=== PATIENT | male | born 1945 | race Caucasian/White ===

== ENCOUNTER → 2017-10-26 16:08 | Outpatient (CLI) | payer MEDICARE, OTHER, SELFPAY ==
--- NOTE | 2017-10-26 16:12 | RAD_ITS ---
STUDY: X-RAY CHEST REASON FOR EXAM: Male, 72 years old. SOB / SOA TECHNIQUE: Frontal and lateral views of the chest. COMPARISON: None. FINDINGS: Chronic appearing increased interstitial lung markings. There is no demonstrated pleural abnormality. Enlarged heart size. Normal mediastinum and randy. Normal visualized pulmonary arteries. There is atherosclerotic calcification of the aortic arch with tortuosity. There are diffuse degenerative changes of the visualized thoracic spine. There is degenerative osteoarthritis of the bilateral shoulders. There is no demonstrated abnormality of the visualized soft tissue structures of the upper abdomen. RAD/Chest PA and Lateral IMPRESSION: There are no acute findings. Electronically Signed: Juanito Fox MD at 18:06 EST , Service support ,
[2017-10-26 17:54] LABS: BNP,B-Type NATRIURETIC PEPTIDE 681.6 pg/mL (0-100)
[2017-10-26 18:01] LABS: Anion Gap 7 (5-15); BUN 27 mg/dL (7-18); BUN/Creat Ratio 24.5 RATIO (10-20); Calcium,Total 8.8 mg/dL (8.5-10.1); Chloride 107 mmol/L (98-107); EST Glomerular Filtration Rate 70 mL/min (>60); Est Glom Filt Rate - Afr Amer 84 mL/min (>60); Glucose 84 mg/dL (74-106); Potassium 4.4 mmol/L (3.5-5.1); Sodium Level 141 mmol/L (136-145)
== END ==
PROVIDERS: Family Provider Preventive Medicine Occupational Medicine; PCP Preventive Medicine Occupational Medicine; Visit Provider Nurse Practitioner Acute Care
DX: R06.02 Shortness of breath (principal)
CPT/HCPCS: 36415; 71046; 80048; 83880

== ENCOUNTER → 2019-08-31 14:51 | Outpatient (CLI) | payer MEDICARE, OTHER, SELFPAY ==
[2019-08-16 14:04] VITALS: BMI 30.5
--- NOTE | 2019-08-31 14:52 | ECHOD_ITS ---
Reason For Study: Dyspnea/SOB Procedure This was a 2D Doppler, Color Flow transthoracic echocardiogram. Exam performed in department. Left Ventricle Normal LV size. Severe concentric left ventricular hypertrophy. Mild segmental systolic dysfunction (see wall motion). The estimated ejection fraction is 45 %. Posterior-Basal: Hypokinetic. Infero- Basal: Akinetic. Mid-Posterior: Hypokinetic. Mid-Inferior: Akinetic. Inferior [place] : Hypokinetic. Right Ventricle Normal RV size. Normal systolic function. Atria The left atrium is moderately enlarged. The right atrium is moderately enlarged. No doppler evidence for ASD. Mitral Valve There is no mitral annular calcification. Normal mitral valve. Moderate (2+) eccentric mitral valve insufficiency. Tricuspid Valve Normal tricuspid valve. Mild to moderate (1-2+) tricuspid valve insufficiency. Right ventricular systolic pressure estimated to be 30 mmHg. Aortic Valve Trisinus/trileaflet aortic valve. Normal aortic valve. Pulmonic Valve The pulmonic valve is not well visualized. Great Vessels The aortic root is not well visualized. Pericardium/Pleural No pericardial effusion. MMode/2D Measurements & Calculations LVIDd: 5.3 cm IVSd: 2.1 cm LA dimension: 5.9 cm LVIDs: 4.4 cm LVPWd: 1.8 cm RVDd: 4.3 cm FS: 15.8 % LAV(MOD-bp): 112.6 ml LA A4 area: 30.7 cm2 RA A4 area: 30.8 cm2 LAV(MOD-bp) Indexed: 54.4 ml/m2 LAV(MOD-sp2): 104.5 ml LAV(MOD-sp4): 113.9 ml Time Measurements MV dec time: 0.14 sec Doppler Measurements & Calculations MV E max joon: 99.8 cm/sec Med Peak E' Joon: 4.4 cm/sec MV V2 max: 96.4 cm/sec MV A max joon: 39.3 cm/sec E/E' med: 22.7 MV max P.7 mmHg MV E/A: 2.5 MV V2 mean: 56.1 cm/sec MV mean P.5 mmHg MV V2 VTI: 28.0 cm MV P1/2t max joon: 97.7 cm/sec Ao V2 max: 134.2 cm/sec AI max joon: 427.7 cm/sec MV P1/2t: 113.2 msec Ao max P.2 mmHg AI max P.3 mmHg MV dec slope: 252.9 cm/sec2 AI dec slope: 226.4 cm/sec2 MVA(P1/2t): 1.9 cm2 AI P1/2t: 553.4 msec LV V1 max: 95.1 cm/sec MR max joon: 440.8 cm/sec PA V2 max: 79.0 cm/sec LV V1 max P.6 mmHg MR max P.7 mmHg MR mean joon: 335.6 cm/sec MR mean P.3 mmHg MR VTI: 143.4 cm TR max joon: 260.3 cm/sec TR max P.1 mmHg Interpretation Summary Mild segmental systolic dysfunction (see wall motion). The estimated ejection fraction is 45 %. Severe concentric left ventricular hypertrophy. The left atrium is moderately enlarged. The right atrium is moderately enlarged. Moderate (2+) eccentric mitral valve insufficiency. Mild to moderate (1-2+) tricuspid valve insufficiency. Right ventricular systolic pressure estimated to be 30 mmHg. Transmitral diastolic flow velocities suggest diastolic dysfunction (pseudonormal pattern). Ordering Physician: Thomas Heath Referring Physician: Thomas Heath Performed By: Alcon Mckeon RCS
== END ==
PROVIDERS: Family Provider Preventive Medicine Occupational Medicine; PCP Preventive Medicine Occupational Medicine; Referring Provider Nurse Practitioner Family; Visit Provider Nurse Practitioner Family
DX: R06.02 Shortness of breath (principal); R06.09 Other forms of dyspnea; I48.0 Paroxysmal atrial fibrillation; I42.9 Cardiomyopathy, unspecified
CPT/HCPCS: 93306

== ENCOUNTER → 2019-09-19 05:51 | Outpatient (CLI) | payer MEDICARE, OTHER, SELFPAY ==
[2019-08-16 14:04] VITALS: BMI 30.5
--- NOTE | 2019-09-19 10:11 | STRESSREP ---
Stress Test Report Date: 09-19-2019 Procedure: Pharmacologic stress nuclear imaging study Indications: Chest pain; pertinence of breath/dyspnea; atrial dysrhythmia; PVCs; cardiomyopathy Consent: Per the patient Procedure: The patient underwent pharmacologic (Regadenoson) evaluation with a peak heart rate of 77 beats per minute (53 %predicted maximal heart rate) and a peak blood pressure of 126/78 mmHg. The baseline ECG demonstrated sinus rhythm; right IVCD. The peak pharmacologic ECG demonstrated no obvious ECG changes. There were occasional PVCs pretest, during infusion, and recovery. [There was no complaint of chest discomfort during pharmacologic infusion or recovery]. The examination was discontinued secondary to completion of protocol. Impression: 1. Pharmacologic (Regadenoson) evaluation 2. Peak pharmacologic ECG with continued right IVCD pattern. 3. There were occasional PVCs pretest, during infusion, and recovery. 4. Nuclear images pending Myocardial perfusion imaging study: Technique: The patient was injected with 14.5 millicuries of technetium 99m Cardiolite and subsequently rest SPECT Cardiolite nuclear imaging was obtained in the horizontal long, vertical long, and short axis views. The patient underwent pharmacologic (Regadenoson) evaluation with a peak heart rate of 77 beats per minute (53 % percent predicted maximal heart rate) and a peak blood pressure of 126/78 mmHg. The patient was injected with 45.0 millicuries of technetium 99m Cardiolite and subsequently stress SPECT Cardiolite nuclear imaging was obtained in the horizontal long, vertical long, and short axis views. A gated Cardiolite study at peak stress was not obtained. Interpretation: Rest and stress SPECT Cardiolite nuclear imaging status post realignment, normalization, and attenuation correction demonstrate a small area of subtle diminished tracer uptake near the apical segments which appear to be somewhat more prominent at rest as opposed to stress. A gated Cardiolite study at peak stress was not obtained. Impression: 1. Rest and stress SPECT Cardiolite nuclear imaging demonstrate myocardial perfusion changes appearing compatible with the effects of shifting soft tissue attenuation/artifact being somewhat more prominent at rest as opposed to stress and/or the effects of physiologic apical thinning with no myocardial perfusion changes consider diagnostic for associated stress-induced myocardial ischemia. 2. The gated Cardiolite study at peak stress was not obtained. This note was generated with [employer] Itation software. It may contain incorrect words, spelling, and punctuation that were not noted in checking the note before signing.
== END ==
PROVIDERS: Family Provider Preventive Medicine Occupational Medicine; PCP Preventive Medicine Occupational Medicine; Referring Provider Nurse Practitioner Family; Visit Provider Nurse Practitioner Family
DX: I42.9 Cardiomyopathy, unspecified (principal); I48.0 Paroxysmal atrial fibrillation; R93.1 Abnormal findings on diagnostic imaging of heart and coronary circulation; R06.02 Shortness of breath
CPT/HCPCS: 78452; 93017; A9500; A4216; J2785

== ENCOUNTER → 2021-01-12 07:28 | Outpatient (CLI) | payer MEDICARE, OTHER, SELFPAY ==
[2021-01-05 15:02] VITALS: BMI 30.2
[2021-01-06 09:56] VITALS: BMI 31.1
== END ==
PROVIDERS: PCP Preventive Medicine Occupational Medicine; Referring Provider Nurse Practitioner Family; Visit Provider Nurse Practitioner Family
DX: R00.2 Palpitations (principal); I48.0 Paroxysmal atrial fibrillation; I42.9 Cardiomyopathy, unspecified
CPT/HCPCS: 93225; 93226

== ENCOUNTER → 2021-01-14 13:22 | Outpatient (CLI) | payer MEDICARE, OTHER, SELFPAY ==
[2021-01-06 09:56] VITALS: BMI 31.1
--- NOTE | 2021-01-14 13:23 | ECHOD_ITS ---
Reason For Study: CHF Procedure This was a 2D Doppler, Color Flow transthoracic echocardiogram. The study was technically difficult. Exam performed in department. Left Ventricle Normal LV size. Severe concentric left ventricular hypertrophy. Moderate segmental systolic dysfunction (see wall motion). The estimated ejection fraction is 35 %. Unable to assess diastolic dysfunction. Lateral-Basal: Hypokinetic. Posterior-Basal: Akinetic. Infero-Basal: Akinetic. Basal inferoseptal: Hypokinetic. Mid-Lateral : Hypokinetic. Mid-Posterior: Akinetic. Mid-Inferior: Akinetic. Inferior [place] : Akinetic. Right Ventricle Normal RV size. A moderator band is seen in the right ventricle. Normal systolic function. Atria The left atrium is moderately enlarged. The right atrium is moderately enlarged. No doppler evidence for ASD. Mitral Valve There is no mitral annular calcification. Normal mitral valve. Mild-Moderate (1-2+) eccentric mitral valve insufficiency. Tricuspid Valve Normal tricuspid valve. Mild tricuspid valve insufficiency. Right ventricular systolic pressure estimated to be 31 mmHg. Aortic Valve Trisinus/trileaflet aortic valve. Mild diffuse aortic valve thickening. Trivial aortic valve insufficiency. Pulmonic Valve The pulmonic valve is not well visualized. Mild (1+) pulmonic valve insufficiency. Great Vessels Normal sized aortic root. Pericardium/Pleural No pericardial effusion. MMode/2D Measurements & Calculations LVIDd: 5.9 cm IVSd: 1.8 cm Ao root diam: 3.8 cm LVIDs: 4.9 cm LVPWd: 1.8 cm RVDd: 4.4 cm FS: 17.3 % LAV(MOD-bp): 120.5 ml LA A4 area: 29.1 cm2 LA dimension(2D): 5.9 cm LAV(MOD-bp) Indexed: 57.7 ml/m2 LAV(MOD-sp2): 115.7 ml LAV(MOD-sp4): 115.0 ml RA A4 area: 27.9 cm2 Doppler Measurements & Calculations Lat Peak E' Joon: 7.0 cm/sec Med Peak E' Joon: 3.0 cm/sec MV V2 max: 93.3 cm/sec MV max P.5 mmHg MV V2 mean: 59.0 cm/sec MV mean P.5 mmHg MV V2 VTI: 26.0 cm Ao V2 max: 143.2 cm/sec AI max joon: 404.5 cm/sec LV V1 max: 79.7 cm/sec Ao max P.2 mmHg AI max P.6 mmHg LV V1 max P.5 mmHg Ao V2 mean: 104.0 cm/sec AI dec slope: 288.5 cm/sec2 LV V1 mean P.4 mmHg Ao mean P.7 mmHg AI P1/2t: 410.7 msec LV V1 mean: 55.7 cm/sec Ao V2 VTI: 26.4 cm LV V1 VTI: 14.5 cm PA V2 max: 95.5 cm/sec TR max joon: 263.1 cm/sec TR max P.8 mmHg ECHO/Echo Complete Interpretation Summary The study was technically difficult. Moderate segmental systolic dysfunction (see wall motion). The estimated ejection fraction is 35 %. Severe concentric left ventricular hypertrophy. The left atrium is moderately enlarged. The right atrium is moderately enlarged. Mild-Moderate (1-2+) eccentric mitral valve insufficiency. Mild tricuspid valve insufficiency. Mild diffuse aortic valve thickening. Trivial aortic valve insufficiency. Mild (1+) pulmonic valve insufficiency. Right ventricular systolic pressure estimated to be 31 mmHg. Unable to assess diastolic dysfunction. Ordering Physician: Thomas Heath Referring Physician: Tavon Salter Performed By: Mini Mccoy, LUZMA, RVT
== END ==
PROVIDERS: PCP Preventive Medicine Occupational Medicine; Referring Provider Nurse Practitioner Family; Visit Provider Nurse Practitioner Family
DX: R06.02 Shortness of breath (principal); R00.2 Palpitations; I48.0 Paroxysmal atrial fibrillation; I42.9 Cardiomyopathy, unspecified
CPT/HCPCS: 93306

== ENCOUNTER 2021-03-24 14:00 | Outpatient (RCR) | payer SELFPAY ==
[2021-02-24 08:14] VITALS: BMI 30.5
== END 2021-04-11 23:59 ==
LOC: NS 14:00
PROVIDERS: PCP Preventive Medicine Occupational Medicine; Visit Provider Nurse Practitioner Family
DX: Z71.3 Dietary counseling and surveillance (principal); I42.9 Cardiomyopathy, unspecified
CPT/HCPCS: 97802

== ENCOUNTER → 2021-04-07 09:21 | Outpatient (CLI) | payer MEDICARE, OTHER, SELFPAY ==
[2021-02-24 08:14] VITALS: BMI 30.5
== END ==
PROVIDERS: PCP Preventive Medicine Occupational Medicine; Referring Provider Nurse Practitioner Family; Visit Provider Nurse Practitioner Family
DX: R00.1 Bradycardia, unspecified (principal); I48.0 Paroxysmal atrial fibrillation; R00.2 Palpitations; I48.92 Unspecified atrial flutter; I42.9 Cardiomyopathy, unspecified
CPT/HCPCS: 93225; 93226

== ENCOUNTER → 2021-05-15 07:14 | Outpatient (CLI) | payer MEDICARE, OTHER, SELFPAY ==
--- NOTE | 2021-05-15 07:17 | ECHOL_ITS ---
Reason For Study: CHF Procedure This was a limited 2D transthoracic echocardiogram. The exam was of adequate technical quality. Exam performed in department. Left Ventricle Normal LV size. Severe concentric left ventricular hypertrophy. Moderate segmental systolic dysfunction (see wall motion). The estimated ejection fraction is 35 %. Unable to assess diastolic dysfunction. Anterio-Basal: Hypokinetic. Lateral-Basal: Hypokinetic. Posterior-Basal: Severely hypokinetic. Infero-Basal: Akinetic. Basal inferoseptal: Hypokinetic. Mid-Lateral : Hypokinetic. Mid-Posterior: Akinetic. Mid-Inferior: Akinetic. Inferior [place] : Hypokinetic. Right Ventricle Normal RV size. Normal systolic function. Atria The left atrium is moderately enlarged. The right atrium is moderately enlarged. No doppler evidence for ASD. Mitral Valve There is no mitral annular calcification. Normal mitral valve. Moderate (2+) eccentric mitral valve insufficiency. Tricuspid Valve Normal tricuspid valve. Mild tricuspid valve insufficiency. Right ventricular systolic pressure estimated to be 29 mmHg. Aortic Valve Trisinus/trileaflet aortic valve. Mild diffuse aortic valve thickening. Trivial aortic valve insufficiency. Pulmonic Valve The pulmonic valve is not well visualized. Great Vessels The aortic root is not well visualized. Pericardium/Pleural No pericardial effusion. MMode/2D Measurements & Calculations LVIDd: 5.5 cm IVSd: 2.1 cm LA dimension: 5.3 cm LVIDs: 5.0 cm LVPWd: 1.9 cm FS: 9.8 % LAV(MOD-bp): 113.0 ml LVAd ap4: 43.5 cm2 SV(MOD-sp4): 67.0 ml LAV(MOD-bp) Indexed: 54.5 ml/m2 LVLd ap4: 10.0 cm LAV(MOD-sp2): 83.3 ml EDV(MOD-sp4): 158.5 ml LAV(MOD-sp4): 128.3 ml EDV(sp4-el): 159.7 ml LVAs ap4: 30.6 cm2 LVLs ap4: 8.9 cm ESV(MOD-sp4): 91.6 ml ESV(sp4-el): 89.7 ml EF(MOD-sp4): 42.3 % EF(sp4-el): 43.9 % SV(sp4-el): 70.1 ml LA A4 area: 34.1 cm2 RA A4 area: 30.4 cm2 Doppler Measurements & Calculations Lat Peak E' Joon: 7.7 cm/sec AI max joon: 415.2 cm/sec TR max joon: 254.7 cm/sec AI max P.0 mmHg TR max P.9 mmHg AI dec slope: 280.8 cm/sec2 AI P1/2t: 433.1 msec ECHO/Echo, Limited Study Interpretation Summary Moderate segmental systolic dysfunction (see wall motion). The estimated ejection fraction is 35 %. Severe concentric left ventricular hypertrophy. The left atrium is moderately enlarged. The right atrium is moderately enlarged. Moderate (2+) eccentric mitral valve insufficiency. Mild tricuspid valve insufficiency. Mild diffuse aortic valve thickening. Trivial aortic valve insufficiency. Right ventricular systolic pressure estimated to be 29 mmHg. Unable to assess diastolic dysfunction. Ordering Physician: Thomas Heath Referring Physician: Tavon Salter Performed By: Alcon Mckeon RCS
== END ==
PROVIDERS: PCP Preventive Medicine Occupational Medicine; Visit Provider Nurse Practitioner Family
DX: R06.00 Dyspnea, unspecified (principal); I42.9 Cardiomyopathy, unspecified; I48.0 Paroxysmal atrial fibrillation; Z79.899 Other long term (current) drug therapy
CPT/HCPCS: 93308

== ENCOUNTER → 2021-08-13 10:39 | Outpatient (CLI) | payer MEDICARE, OTHER, SELFPAY ==
--- NOTE | 2021-08-13 10:43 | VDLE_ITS ---
Reason For Study: Pain RIGHT GSV is normal. CFV is compressible, spontaneous, phasic, competent and demonstrates normal augmentation. FV is compressible, spontaneous, phasic, competent and demonstrates normal augmentation. POP V is compressible, spontaneous, phasic, competent and demonstrates normal augmentation. T/P Trunk is compressible. PTV is compressible. RT PerV is compressible. Right GastrocV is partially compressible with bright intraluminal echoes consistent with Chroic DVT. Rigth varicose veins in prox calf are partially compressible with bright intraluminal echoes consistent with Chronict SVT. Procedure This is a venous duplex using B-mode, color flow and spectral Doppler. Exam performed in department. A preliminary report was called and/or faxed to [facility]. VL/Venous Duplex US, Unilateral Interpretation Summary Chronic venous changes are noted in the right gastrocnemius vein, which is part ially compressible and demonstrates bright intraluminal echogenicity. The remainder of the right l ower extremity deep venous system is patent and compressible. Valvular competence appears intact wi thin the proximal deep venous system on the right . The right great saphenous vein appears patent and compressible segmentally. Chronic venous changes are noted in superficial varicosities in th e right proximal calf. Ordering Physician: Josue Pereira Referring Physician: Tavon Salter Performed By: Monse Grimes RVT
== END ==
PROVIDERS: PCP Preventive Medicine Occupational Medicine; Referring Provider Physician Assistant Surgical; Visit Provider Physician Assistant Surgical
DX: M79.661 Pain in right lower leg (principal)
CPT/HCPCS: 93971

== ENCOUNTER 2021-09-22 08:23 | Outpatient (CLI) | payer MEDICARE, OTHER, SELFPAY | END 2021-09-22 23:59 | disposition short-term general hospital (02) | PROVIDERS: PCP Preventive Medicine Occupational Medicine; Referring Provider Nurse Practitioner Family; Visit Provider Nurse Practitioner Family | DX: R00.1 Bradycardia, unspecified (principal); I50.9 Heart failure, unspecified; I42.9 Cardiomyopathy, unspecified; I48.0 Paroxysmal atrial fibrillation; I48.92 Unspecified atrial flutter; I47.9 Paroxysmal tachycardia, unspecified; R42 Dizziness and giddiness; I34.0 Nonrheumatic mitral (valve) insufficiency; I51.7 Cardiomegaly; R00.2 Palpitations | CPT/HCPCS: 93225; 93226 ==

== ENCOUNTER 2021-09-29 16:46 | Outpatient (CLI) | payer MEDICARE, OTHER, SELFPAY ==
[2021-09-29 17:24] LABS: Absolute Lymphocyte Count 0.92 X10^3/uL (0.83-4.51); Absolute Neutrophil Count 3.5 X10^3/uL (2.0-7.7); Basophil# 0.05 X10^3/uL; Eosinophil# 0.06 X10^3/uL; Eosinophils% 1.2 % (0-5); Hemoglobin 11.4 g/dL (13.0-16.5); Lymphocyte # 0.92 X10^3/ul (0.83-4.51); Lymphocyte % 18.3 % (19-41); Mean Corp Hgb Conc 30.8 g/dL (32-36); Mean Corpuscular Volume 107.2 fL (80-94); Mean Platelet Vol. 10.9 fl (6.2-12.0); Monocyte# 0.46 X10^3/uL; Monocyte% 9.1 % (0-10); NRBC Flagged by Analyzer 0 % (0-5); Neutrophil # 3.52 X10^3/uL (2.7-7.7); Platelet Count 147 K/mm3 (150-450); RBC Distribution Width CV 15.3 % (11.6-14.6); RBC Distribution Width SD 60.8 fl (35.1-43.9); Red Blood Count 3.45 M/mm3 (4.6-6.2)
[2021-09-29 18:17] LABS: Anion Gap 7 (5-15); BUN 33 mg/dL (7-18); BUN/Creat Ratio 20.5 RATIO (10-20); Calcium,Total 8.7 mg/dL (8.5-10.1); Chloride 105 mmol/L (98-107); Creatinine, Serum 1.61 mg/dL (0.70-1.30); EST Glomerular Filtration Rate 44 mL/min (>60); Est Glom Filt Rate - Afr Amer 54 mL/min (>60); Glucose 103 mg/dL (74-106); Magnesium 2.5 mg/dL (1.6-2.6); Potassium 3.8 mmol/L (3.5-5.1); Sodium Level 143 mmol/L (136-145)
[2021-09-29 18:37] LABS: BNP,B-Type NATRIURETIC PEPTIDE 645.9 pg/mL (0-100)
== END 2021-09-29 23:59 | disposition short-term general hospital (02) ==
LOC: LAB 16:50
PROVIDERS: PCP Preventive Medicine Occupational Medicine; Visit Provider Nurse Practitioner Gerontology
DX: R06.02 Shortness of breath (principal); I48.0 Paroxysmal atrial fibrillation
CPT/HCPCS: 36415; 80048; 83735; 83880; 85025

== ENCOUNTER 2021-10-09 16:28 | Inpatient (IN) | payer MEDICARE, OTHER, SELFPAY ==
[2021-10-09] VITALS (13 sets, daily range): BP systolic 105–136; BP diastolic 75–90; PULSE 91–152; RESP 16–20; TEMP 36.1–36.7; O2SAT 94–99; BMI 33.4; BMI 32.4
--- NOTE | 2021-10-09 16:47 | EKG12_ITS ---
Test Reason : SOB Blood Pressure : / mmHG Vent. Rate : 102 BPM Atrial Rate : 101 BPM P-R Int : 000 ms QRS Dur : 172 ms QT Int : 438 ms P-R-T Axes : 000 107 -18 degrees QTc Int : 570 ms Atrial fibrillation with premature ventricular or aberrantly conducted complexes Right bundle branch block Septal infarct , age undetermined Abnormal ECG Confirmed by LISA BRANHAM, JJ ([id number]), editor trade journal [employer] ([id number]) on 10/12/2021 10:32:06 AM Referred By: J LUIS Confirmed By:JJ GONZALEZ MD
--- NOTE | 2021-10-09 16:58 | ED.VIS.DYS ---
HPI History of Present Illness Chief Complaint: Shortness of Breath Narrative Narrative: 75-year-old male with history of atrial fibrillation, atrial flutter, cardiomyopathy, CHF, COPD, asthma presenting with shortness of breath. He states this has been going on for about a week. It occurs at rest and is worsened with exertion. Patient states that the shortness of breath at rest seems to come and go and last for about 30 minutes to an hour sometimes. He has no lightheadedness, dizziness associated with the shortness of breath. He states that his times he does feel like there is an abnormal pressure feeling in his upper chest wall and other times there is some pressure in the right side of his chest. These are mild symptoms. He states that he feels the upper chest wall is due to the difficulty clearing his throat. He states he drinks warmed chicken broth and usually is able to clear this afterwards. Patient states that when he gets up to ambulate he feels like my head is going to explode. He does note that he has lower extremity edema which is worsened. Patient sees Dr. Sherwood for cardiology. He states he was previously on Lasix but was not tolerating this well and was switched to an unknown medication just yesterday and he he took the first dose of it today and this did not seem to improve or worsen his symptoms. Patient does deny fevers, chills, new or changing cough. [facility] Medical History Abnormal electrocardiogram Asthma Atrial flutter Atrial premature contractions Body mass index (BMI) of 30.0-30.9 in adult Cardiac murmur Cardiomyopathy Contraction, premature ventricular COPD (chronic obstructive pulmonary disease) Dyspnea Edema Left ventricular hypertrophy Long-term use of high-risk medication Non-rheumatic mitral regurgitation Palpitations Paroxysmal atrial fibrillation Vertigo Home Medications ascorbic acid (vitamin C) 500 mg PO DAILY@0800 06/03/16 [History Last Taken Unknown] vit C 250 mg-vit E 90 mg-zinc 40 mg-copper 1 un-bdqawq-aizojw capsule 1 tab PO .daily cap 08/25/17 [History Last Taken Unknown] cholecalciferol (vitamin D3) 25 mcg (1,000 unit) capsule 1,000 unit PO DAILY cap 08/16/19 [History Last Taken Unknown] glucosamine sulfate 1,000 mg capsule 1,000 mg PO DAILY cap 08/16/19 [History Last Taken Unknown] turmeric root extract 538 mg capsule 538 mg PO DAILY 08/16/19 [History Last Taken Unknown] albuterol sulfate 90 mcg/actuation aerosol inhaler 2 puff INHALATION Q4H PRN #18 g 10/10/20 [Rx Last Taken Unknown] mecobalamin (vitamin B12) 5,000 mcg lozenge 5,000 mcg PO DAILY 01/05/21 [History Last Taken Unknown] potassium chloride 20 mEq tablet,extended release 20 meq PO DAILY 01/05/21 [History Last Taken Unknown] pyridoxine (vitamin B6) 100 mg tablet 200 mg PO DAILY tablet 01/05/21 [History Last Taken Unknown] vitamin A 2,400 mcg capsule 2,400 mcg PO DAILY 01/05/21 [History Last Taken Unknown] zinc 50 mg tablet 50 mg PO DAILY 01/05/21 [History Last Taken Unknown] budesonide-formoterol HFA 160 mcg-4.5 mcg/actuation aerosol inhaler 2 inh INHALATION BID #10.2 g 01/30/21 [Rx Last Taken Unknown] acetaminophen 500 mg tablet 1,000 mg PO Q6H PRN tab 08/13/21 [History Last Taken Unknown] azelastine 137 mcg (0.1 %) nasal spray aerosol 2 spray INTRANASAL BID PRN ml 08/13/21 [History Last Taken Unknown] finasteride 5 mg tablet 5 mg PO DAILY 08/13/21 [History Last Taken Unknown] fluticasone propionate 50 mcg/actuation nasal spray,suspension 1 spray INTRANASAL BID PRN ml 08/13/21 [History Last Taken Unknown] furosemide 40 mg tablet 40 mg PO DAILY tab 09/29/21 [History Last Taken Unknown] amiodarone 200 mg tablet 200 mg PO DAILY #30 tab 10/05/21 [Rx Last Taken Unknown] apixaban 5 mg tablet 5 mg PO BID #60 tab 10/05/21 [Rx Last Taken Unknown] metolazone 5 mg tablet 5 mg PO .COMPLEX #30 tab 10/08/21 [Rx Last Taken Unknown] Allergy/AdvReac Type Severity Reaction Status Date / Time codeine Allergy Intermediate unknown Verified 09/29/21 15:55 acetaminophen [From Vicodin] Allergy Unknown Verified 09/29/21 15:55 hydrocodone Allergy Unknown Verified 09/29/21 15:55 Family History Mother A-fib Father Cancer Surgical History H/O hernia repair H/O left knee surgery H/O removal of cyst H/O repair of rotator cuff History of bilateral cataract extraction History of total right knee replacement (07/28/21) Social History Smoking Status: Never smoker second hand exposure: No alcohol intake: never substance use type: does not use caffeine: Yes Type: carbonated beverages Number of servings: 1 ROS ROS ED Constitutional Constitutional ED: Denies chills or fever(s) Eyes Eyes: Denies blurry vision or diplopia ENT ENT ED: Denies rhinorrhea or sore throat Cardiovascular Cardiovascular: Reports chest pain Respiratory/Chest Respiratory/Chest: Reports dyspnea and dyspnea on exertion Gastrointestinal Gastrointestinal: Denies abdominal pain, nausea or vomiting Genitourinary Genitourinary ED: Denies dysuria or hematuria Musculoskeletal Musculoskeletal: Denies arthralgias, myalgias or neck pain Integumentary Denies rash Neurologic Neurologic: Denies headache(s) or weakness Psychiatric Psychiatric: Denies anxiety or depression EXAM Physical Exam Const Vital Signs: 10/09/21 16:29 10/09/21 16:30 10/09/21 16:38 Temperature 96.9 F L 96.9 F L Temperature Source Temporal Temporal Pulse Rate 152 H 152 H 110 H Respiratory Rate 20 H 20 H 18 Blood Pressure 119/88 H 119/88 H 136/90 H Blood Pressure Mean 98 98 105 Pulse Ox 94 94 97 Oxygen Delivery Method Room Air Room Air Room Air 10/09/21 17:16 10/09/21 17:30 10/09/21 17:56 Temperature 97 F L Temperature Source Temporal Pulse Rate 91 91 Respiratory Rate 16 16 Blood Pressure 106/75 106/75 Blood Pressure Mean 85 85 Pulse Ox 98 98 Oxygen Delivery Method Room Air Room Air Room Air 10/09/21 18:00 10/09/21 18:09 10/09/21 19:18 Temperature 97 F L Temperature Source Temporal Pulse Rate 94 94 93 Respiratory Rate 18 18 18 Blood Pressure 106/75 106/75 115/79 Blood Pressure Mean 85 85 91 Pulse Ox 99 99 96 Oxygen Delivery Method Room Air Room Air Room Air Positive well nourished General Appearance ED: NAD; Negative for pallor HEENT Reports moist mucous membranes atraumatic Eyes PERRL and EOMs intact bilaterally General Eye ED: Negative for pale conjunctiva or scleral icterus Neck no lymphadenopathy and supple Resp normal respiratory effort Auscultation: diminished lung sounds bilateral lower Cardio regular rhythm Rate: tachycardic GI non-tender and non-distended Palpation: soft Extremity General Extremety ED: Yes edema; Negative for tenderness General Extremity: edema Neuro oriented x3, CN's II-XII intact bilaterally and no sensory deficits noted Sensorium / Orientation: alert Motor Exam: strength 5/5 throughout Psych mental status grossly normal Thought Process: normal thought process Skin General Skin Exam: Negative for jaundice or pallor Rashes: no rashes MDM MDM MDM Narrative Medical decision making narrative: 75-year-old male presenting with chest pain which is right-sided and sometimes its in the upper sternal area. He states specifically this does not affect him with the symptoms of shortness of breath. He does have episodes of shortness of breath which last 30 minutes to an hour at a time. He states this is worse with exertion. Patient has history of CHF and EF of 35%. He states that he has been taking Lasix and could not remember the medication at first but was able to confirm that it was metolazone that he was supposed to take before he took his Lasix. He had taken metolazone and 2 doses of Lasix today 40 mg. Patient's EKG on arrival shows atrial fibrillation with a ventricular rate of 103 bpm. It is noted that when the patient first arrived his heart rate was 152. When I entered the room to examine and it was down to about 110. While sitting in bed his heart rate has slowed to 93. He has not required any medication for this. The patient is to express that if he gets too much Lasix sometimes his blood pressure gets a little bit low. I did obtain blood work and his CBC shows no leukocytosis. Hemoglobin is stable at 12.3. Are slightly low at 141. On 09/29/2021 this was 147. This is near the patient's baseline. Creatinine is 1.80 and on 09/29/2021 his creatinine was 1.61. The last comparison I have for this is in October 2017 when it was 1.10. GFR is 39 and it was 44 on 18. BNP is elevated at 618.2. Chest x-ray shows bilateral pleural effusions on my interpretation and the radiologist does agree. He also does read this as bilateral infiltrates. High-sensitivity troponin is 118. Delta troponin is pending. Patient was discussed with the hospitalist who recommended giving another dose of Lasix 40 mg IV. The hospitalist will also do a Covid PCR test. Impression: 1. Chest pain 2. CHF exacerbation 3. Dyspnea 4. History of A. fib 5. Renal insufficiency Lab Data Attestation: I reviewed the patient's lab results. Labs: Laboratory Results - last 24 hr 10/09/21 10/09/21 10/09/21 16:38 16:38 16:38 WBC 6.1 RBC 3.71 L Hgb 12.3 L Hct 38.9 L MCV 104.9 H MCH 33.2 H MCHC 31.6 L RDW Std Deviation 60.7 H RDW Coeff of Saurav 15.8 H Plt Count 141 L MPV 11.3 Immature Gran % (Auto) 0.500 Neut % (Auto) 69.3 Lymph % (Auto) 19.1 Borden % (Auto) 9.3 Eos % (Auto) 0.8 Baso % (Auto) 1.0 Absolute Neuts (auto) 4.3 Absolute Lymphs (auto) 1.17 Nucleated RBC % 0 Sodium 139 Potassium 3.2 L Chloride 104 Carbon Dioxide 29.0 Anion Gap 6 BUN 32 H Creatinine 1.80 H Estim Creat Clear Calc 33.25 Est GFR (MDRD) Af Amer 47 L Est GFR (MDRD) Non-Af 39 L BUN/Creatinine Ratio 17.8 Glucose 87 Calcium 9.1 Troponin I High Sens 118 H B-Natriuretic Peptide 618.2 H Radiography Diagnostic Testing: Clinical Impression(s) from Imaging Studies Chest X-Ray 10/09/21 17:17 IMPRESSION: There are bilateral pleural effusions. There are bilateral infiltrates. Electronically Signed: Juanito Fox MD at 17:47 EST , Discharge Plan Triage Chief Complaint: Shortness of Breath ED Provider: Samy Mccallum Dx/Rx/DC Orders Prescriptions: No Action vit C,I-Uf-dhrbp-lutein-zeaxan [PreserVision AREDS-2] 980-175-74-1 rs-jaoa-ao-mg capsule 1 tab PO .daily RF: 0 cholecalciferol (vitamin D3) 1,000 unit capsule 1,000 unit PO DAILY RF: 0 fluticasone propionate 50 mcg/actuation spray,suspension 1 spray INTRANASAL BID PRNRF: 0 turmeric root extract 538 mg capsule 538 mg PO DAILY RF: 0 glucosamine sulfate 1,000 mg capsule 1,000 mg PO DAILY RF: 0 albuterol sulfate [ProAir HFA] 90 mcg/actuation HFA aerosol inhaler 2 puff INHALATION Q4H PRN (Reason: shortness of breath or wheezing) Qty: 18 RF: 3 azelastine 137 mcg (0.1 %) aerosol,spray 2 spray intranasal BID PRNRF: 0 zinc 50 mg tablet 50 mg PO DAILY RF: 0 potassium chloride 20 mEq tablet extended release 20 meq PO DAILY RF: 0 Hold Instructions: while lasix is on hold mecobalamin (vitamin B12) 5,000 mcg lozenge 5,000 mcg PO DAILY RF: 0 vitamin A 2,400 mcg capsule 2,400 mcg PO DAILY RF: 0 acetaminophen [Tylenol Extra Strength] 500 mg tablet 1,000 mg PO Q6H PRNRF: 0 finasteride 5 mg tablet 5 mg PO DAILY RF: 0 ascorbic acid (vitamin C) 500 MG tablet 500 mg PO DAILY@0800 RF: 0 pyridoxine (vitamin B6) 100 mg tablet 200 mg PO DAILY RF: 0 budesonide-formoterol [Symbicort] 160-4.5 mcg/actuation HFA aerosol inhaler 2 inh inhalation BID Qty: 10.2 RF: 10 furosemide [Lasix] 40 mg tablet 40 mg PO DAILY RF: 0 Hold Instructions: Hypotension amiodarone 200 mg tablet 200 mg PO DAILY Qty: 30 RF: 11 Eliquis 5 mg tablet 5 mg PO BID Qty: 60 RF: 11 metolazone 5 mg tablet 5 mg PO .COMPLEX Qty: 30 RF: 11 Primary Care Provider: Tavon Salter
[2021-10-09 17:14] LABS: Absolute Lymphocyte Count 1.17 X10^3/uL (0.83-4.51); Absolute Neutrophil Count 4.3 X10^3/uL (2.0-7.7); Basophil# 0.06 X10^3/uL; Eosinophil# 0.05 X10^3/uL; Eosinophils% 0.8 % (0-5); Hematocrit 38.9 % (40-54); Hemoglobin 12.3 g/dL (13.0-16.5); Lymphocyte # 1.17 X10^3/ul (0.83-4.51); Lymphocyte % 19.1 % (19-41); Mean Corp Hgb Conc 31.6 g/dL (32-36); Mean Corpuscular Hgb 33.2 pg (27.0-32.0); Mean Corpuscular Volume 104.9 fL (80-94); Mean Platelet Vol. 11.3 fl (6.2-12.0); Monocyte# 0.57 X10^3/uL; Monocyte% 9.3 % (0-10); NRBC Flagged by Analyzer 0 % (0-5); Neutrophil # 4.26 X10^3/uL (2.7-7.7); Neutrophil % 69.3 % (47-70); Platelet Count 141 K/mm3 (150-450); RBC Distribution Width CV 15.8 % (11.6-14.6); RBC Distribution Width SD 60.7 fl (35.1-43.9); Red Blood Count 3.71 M/mm3 (4.6-6.2); White Blood Count 6.1 K/mm3 (4.4-11.0)
--- NOTE | 2021-10-09 17:17 | RAD_ITS ---
STUDY: X-RAY CHEST REASON FOR EXAM: Male, 75 years old. SOB / SOA chest pain TECHNIQUE: XR Chest 1 View COMPARISON: 10/26/2017 FINDINGS: There are bilateral pleural effusions. There are bilateral infiltrates. Normal size heart. Normal mediastinum and randy. Normal visualized pulmonary arteries. There is atherosclerotic calcification of the aortic arch with tortuosity. There are diffuse degenerative changes of the visualized thoracic spine. There is degenerative osteoarthritis of the bilateral shoulders. There is no demonstrated abnormality of the visualized soft tissue structures of the upper abdomen. RAD/Chest 1 View (Portable) IMPRESSION: There are bilateral pleural effusions. There are bilateral infiltrates. Electronically Signed: Juanito Fox MD at 17:47 EST ,
[2021-10-09 17:47] LABS: Anion Gap 6 (5-15); BNP,B-Type NATRIURETIC PEPTIDE 618.2 pg/mL (0-100); BUN 32 mg/dL (7-18); BUN/Creat Ratio 17.8 RATIO (10-20); Calcium,Total 9.1 mg/dL (8.5-10.1); Chloride 104 mmol/L (98-107); EST Glomerular Filtration Rate 39 mL/min (>60); Est Glom Filt Rate - Afr Amer 47 mL/min (>60); Estimated Creatinine Clearance 33.25 ml/min; Glucose 87 mg/dL (74-106); Potassium 3.2 mmol/L (3.5-5.1); Sodium Level 139 mmol/L (136-145); Troponin-I HS 118 pg/mL (3.0-78.0)
[2021-10-09] MEDS: Furosemide 40 MG/4 ML Vial IV (20:01)
--- NOTE | 2021-10-09 20:05 | CASEMGMT ---
DEANNE RIVERA to room to meet with patient for initial transition planning/care coordination assessment. DEANNE RIVERA introduced self and role at [facility]. Patient voices understanding and consents to assessment at this time. Patient's [id number] Blanche present at bedside. Patient is alert and oriented, sitting up on ER cart in no apparent distress and answers all questions appropriately. Care providers, pharmacy, and demographics verified/updated at this time. Admitting Dx: CHF exacerbation PCP: Tavon Salter Specialists: Kaela- cardiology, Sharath- pulmonology Preferred Pharmacy: [facility] Insurance: Medicare A/B & [employer] Prescription Benefit: yes Living Will/HPOA: Patient states he has a living will and HPOA. Patient made aware these forms are not on file at [facility] and may be brought in to be scanned into record. LNOK: Daughter Rhonda and son Raghu Living Arrangements: Patient lives with daughter and son-in-law in two story house with no steps to enter the home. Patient states independent with ADLs prior to hospitalization. Smoking/ETOH: Never smoker, denies ETOH use Transportation: Patient drives self and denies transportation concerns. DME/HHC/SNF: Patient typically ambulates independently without the use of an assistive device. Available DME in home: shower chair, cane, walker, wheelchair, and chair lift. Patient does not have home oxygen. Denies previous HHC or SNF stays. DEANNE RIVERA spoke with patient about [facility] program for education on disease process, medication management and monitoring of vital signs. Patient declines referral to program at this time. Patient has no concerns with going home at time of discharge. CM to follow for any discharge planning/needs. Patient voices no concerns/needs at this time. Advised patient to ask for CM if any questions/concerns/needs arise. Voices understanding. Plan: home
[2021-10-09 20:06] LABS: Magnesium 2.4 mg/dL (1.6-2.6); Troponin-I HS 120 pg/mL (3.0-78.0)
--- NOTE | 2021-10-09 20:26 | HP.PCM_ITS ---
Documented by User: SUE Yanez 10/09/21 20:48 HPI - General General Date of Admission: 10/09/21 Date of Service: 10/09/21 Chief Complaint: Shortness of breath HPI Dayami SINGH, is a 75 M who presents with complaints of shortness of breath over the past week. Patient has a history of atrial fibrillation, cardiomyopathy, CHF, COPD. Patient reports that he has felt shortness of breath and also feels like he has junk in his lungs that he has been unable to cough up. Patient states that he does have shortness of breath intermittently even at rest. Patient is not hypoxic. Patient also reports that he has severely increased lower extremity edema. Patient does report that he is on metolazone as well as furosemide. Patient had a negative Covid rapid antigen test in ER and PCR is pe nding. [facility] Medical History Abnormal electrocardiogram Asthma Atrial flutter Atrial premature contractions Body mass index (BMI) of 30.0-30.9 in adult Cardiac murmur Cardiomyopathy Contraction, premature ventricular COPD (chronic obstructive pulmonary disease) Dyspnea Edema Left ventricular hypertrophy Long-term use of high-risk medication Non-rheumatic mitral regurgitation Palpitations Paroxysmal atrial fibrillation Vertigo Home Medications ascorbic acid (vitamin C) 500 mg PO DAILY@0800 06/03/16 [History Last Taken Unknown] vit C 250 mg-vit E 90 mg-zinc 40 mg-copper 1 qn-vdnepa-romazo capsule 1 tab PO .daily cap 08/25/17 [History Last Taken Unknown] cholecalciferol (vitamin D3) 25 mcg (1,000 unit) capsule 1,000 unit PO DAILY ca p 08/16/19 [History Last Taken Unknown] glucosamine sulfate 1,000 mg capsule 1,000 mg PO DAILY cap 08/16/19 [History Last Taken Unknown] turmeric root extract 538 mg capsule 538 mg PO DAILY 08/16/19 [History Last Taken Unknown] albuterol sulfate 90 mcg/actuation aerosol inhaler 2 puff INHALATION Q4H PRN #18 g 10/10/20 [Rx Last Taken Unknown] mecobalamin (vitamin B12) 5,000 mcg lozenge 5,000 mcg PO DAILY 01/05/21 [History Last Taken Unknown] potassium chloride 20 mEq tablet,extended release 20 meq PO DAILY 01/05/21 [History Last Taken Unknown] pyridoxine (vitamin B6) 100 mg tablet 200 mg PO DAILY tablet 01/05/21 [History Last Taken Unknown] vitamin A 2,400 mcg capsule 2,400 mcg PO DAILY 01/05/21 [History Last Taken Unknown] zinc 50 mg tablet 50 mg PO DAILY 01/05/21 [History Last Taken Unknown] acetaminophen 500 mg tablet 1,000 mg PO Q6H PRN tab 08/13/21 [History Last Taken Unknown] azelastine 137 mcg (0.1 %) nasal spray aerosol 2 spray INTRANASAL BID PRN ml 08/13/21 [History Last Taken Unknown] finasteride 5 mg tablet 5 mg PO DAILY 08/13/21 [History Last Taken Unknown] fluticasone propionate 50 mcg/actuation nasal spray,suspension 1 spray INTRANASAL BID PRN ml 08/13/21 [History Last Taken Unknown] furosemide 40 mg tablet 40 mg PO BID tab 09/29/21 [History Last Taken Unknown] amiodarone 200 mg PO DAILY 10/09/21 [History Last Taken Unknown] apixaban [Eliquis] 5 mg PO BID 10/09/21 [History Last Taken Unknown] budesonide-formoterol [Symbicort] 2 inh INHALATION BID 10/09/21 [History Last Taken Unknown] metolazone 5 mg PO .COMPLEX 10/09/21 [History Last Taken Unknown] Allergy/AdvReac Type Severity Reaction Status Date / Time codeine Allergy Intermediate unknown Verified 09/29/21 15:55 acetaminophen [From Vicodin] Allergy Unknown Verified 09/29/21 15:55 hydrocodone Allergy Unknown Verified 09/29/21 15:55 Family History Mother A-fib Father Cancer Surgical History H/O hernia repair H/O left knee surgery H/O removal of cyst H/O repair of rotator cuff History of bilateral cataract extraction History of total right knee replacement (07/28/21) Social History Smoking Status: Never smoker second hand exposure: No alcohol intake: never substance use type: does not use caffeine: Yes Type: carbonated beverages Number of servings: 1 ROS Constitutional Constitutional: Denies anorexia, chills, fatigue, fever(s), malaise or weakness Cardiovascular Cardiovascular: Reports dyspnea at rest, dyspnea on exertion, edema and pedal edema; Denies chest pain, palpitations or syncope Respiratory/Chest Respiratory/Chest: Reports chest tightness, cough, shortness of breath at rest and shortness of breath with exertion Gastrointestinal Gastrointestinal: Denies abdominal pain, constipation, diarrhea, nausea or vomiting Genitourinary Genitourinary: Denies dysuria Musculoskeletal Musculoskeletal: Denies back pain, extremity pain, joint pain, joint stiffness or joint swelling Integumentary Integumentary: Denies dry skin Neurologic Neurologic: Denies abnormal gait, abnormal speech, confusion or dizziness Psychiatric Psychiatric: Denies anxiety or depression Endocrine Endocrinology: Denies change in body appearance Hematologic/Lymphatic Hematologic/Lymphatic: Denies anemia, easy bleeding or easy bruising Vital Signs Vital Signs Vital Signs: 10/09/21 16:29 10/09/21 16:30 10/09/21 16:38 Temperature 96.9 F L 96.9 F L Temperature Source Temporal Temporal Pulse Rate 152 H 152 H 110 H Respiratory Rate 20 H 20 H 18 Blood Pressure 119/88 H 119/88 H 136/90 H Blood Pressure Mean 98 98 105 Pulse Ox 94 94 97 Oxygen Delivery Method Room Air Room Air Room Air 10/09/21 17:16 10/09/21 17:30 10/09/21 17:56 Temperature 97 F L Temperature Source Temporal Pulse Rate 91 91 Respiratory Rate 16 16 Blood Pressure 106/75 106/75 Blood Pressure Mean 85 85 Pulse Ox 98 98 Oxygen Delivery Method Room Air Room Air Room Air 10/09/21 18:00 10/09/21 18:09 10/09/21 19:18 Temperature 97 F L Temperature Source Temporal Pulse Rate 94 94 93 Respiratory Rate 18 18 18 Blood Pressure 106/75 106/75 115/79 Blood Pressure Mean 85 85 91 Pulse Ox 99 99 96 Oxygen Delivery Method Room Air Room Air Room Air 10/09/21 20:02 Temperature 98.1 F Temperature Source Oral Pulse Rate 104 H Respiratory Rate 18 Blood Pressure 110/87 H Blood Pressure Mean 94 Pulse Ox 95 Oxygen Delivery Method Room Air Weight Weight: 220 lb Body Mass Index (BMI) 33.4 Physical Exam Const alert, oriented x3 and no apparent distress General Appearance: cooperative HEENT normocephalic and head/scalp atraumatic Eyes conjunctivae normal and no scleral icterus Neck no lymphadenopathy and supple General: trachea midline Resp normal respiratory effort and normal air movement Auscultation: diminished lung sounds Cardio regular rate, regular rhythm, S1 normal heart sound, S2 normal heart sound and peripheral pulses 2+ throughout Rate: tachycardic GI normal to inspection, nondistended, normoactive bowel sounds, soft to palpation and non-tender Extremity normal capillary refill General Extremity: edema bilateral lower extremity Details: severe Skin General Skin Exam: no breakdown and turgor normal Lesions: no lesions Rashes: no rashes Neuro no focal motor deficits and no sensory deficits noted Speech: speech normal Motor Exam: Negative for general weakness Psych thought process normal, cooperative and affect normal Appearance: appropriate Results Lab / Micro Data Result Diagrams: 10/09/21 16:38 10/09/21 16:38 Labs: Laboratory Results - last 24 hr 10/09/21 16:38: WBC 6.1, RBC 3.71 L, Hgb 12.3 L, Hct 38.9 L, MCV 104.9 H, MCH 33.2 H, MCHC 31.6 L, RDW Std Deviation 60.7 H, RDW Coeff of Saurav 15.8 H, Plt Count 141 L, MPV 11.3, Immature Gran % (Auto) 0.500, Neut % (Auto) 69.3, Lymph % (Auto) 19.1, Meagher % (Auto) 9.3, Eos % (Auto) 0.8, Baso % (Auto) 1.0, Absolute Neuts (auto) 4.3, Absolute Lymphs (auto) 1.17, Nucleated RBC % 0 10/09/21 16:38: Sodium 139, Potassium 3.2 L, Chloride 104, Carbon Dioxide 29.0, Anion Gap 6, BUN 32 H, Creatinine 1.80 H, Estim Creat Clear Calc 33.25, Est GFR (MDRD) Af Amer 47 L, Est GFR (MDRD) Non-Af 39 L, BUN/Creatinine Ratio 17.8, Glucose 87, Calcium 9.1, Troponin I High Sens 118 H 10/09/21 16:38: B-Natriuretic Peptide 618.2 H 10/09/21 19:10: Magnesium 2.4, Troponin I High Sens 120 H Micro: Microbiology 10/09/21 17:05 Nasal Secretion SARS-CoV-2 Antigen (Rapid) - Final Radiology Impression Chest X-Ray 10/09/21 17:17 IMPRESSION: There are bilateral pleural effusions. There are bilateral infiltrates. Electronically Signed: Juanito Fox MD at 17:47 EST Reading Location ID and State: [address] [place] [address] , Service support , Assessment & Plan Assessment/Plan (1) Acute on chronic HFrEF (heart failure with reduced ejection fraction): (2) COPD (chronic obstructive pulmonary disease): QUALIFIERS: COPD type: unspecified COPD Qualified Code(s): J44.9 - Chronic obstructive pulmonary disease, unspecified PLAN: 1. Acute on chronic heart failure with reduced ejection ejection fraction -Admit to PCU for continuous cardiac monitoring -Bilateral lower extremity Dwayne wraps -Trend cardiac enzymes -Elevate bilateral lower extremities -Daily weights with strict intake and output -Cardiac diet ordered -CBC, CMP, lipid profile, TSH ordered for a.m. -IV Lasix 40 mg twice daily ordered, metolazone continued -BNP 618.2, chest x-ray demonstrates bilateral pleural effusions. 2. Hypokalemia -Potassium 3.2, likely secondary to diuretic use -Potassium chloride 40 mEq p.o. x1 given -Potassium chloride 20 mEq daily ordered for a.m. 3.Atrial fibrillation -Continue Eliquis, amiodarone. -Patient currently in atrial fibrillation with PVCs and right bundle branch block -Heart rate currently controlled 4. COPD -Continue patient's home medication regimen of scheduled Symbicort, as needed albuterol -Stable, patient on room air, pulse ox 95% 5. BPH -Continue finasteride DVT prophylaxis-chronically anticoagulated with Eliquis, SCDs This patient was seen by SUE Yanez under the supervision of Dr. Mendez. 29 minutes spent in clinical coordination of patient's plan of care. Documented by User: Dr. Nayely Mendez MD 10/09/21 21:04 HPI - General General Date of Admission: 10/09/21 [facility] Medical History Abnormal electrocardiogram Asthma Atrial flutter Atrial premature contractions Body mass index (BMI) of 30.0-30.9 in adult Cardiac murmur Cardiomyopathy Contraction, premature ventricular COPD (chronic obstructive pulmonary disease) Dyspnea Edema Left ventricular hypertrophy Long-term use of high-risk medication Non-rheumatic mitral regurgitation Palpitations Paroxysmal atrial fibrillation Vertigo Home Medications ascorbic acid (vitamin C) 500 mg PO DAILY@0800 06/03/16 [History Last Taken Unknown] vit C 250 mg-vit E 90 mg-zinc 40 mg-copper 1 yd-ynyqsu-qnuxgv capsule 1 tab PO .daily cap 08/25/17 [History Last Taken Unknown] cholecalciferol (vitamin D3) 25 mcg (1,000 unit) capsule 1,000 unit PO DAILY cap 08/16/19 [History Last Taken Unknown] glucosamine sulfate 1,000 mg capsule 1,000 mg PO DAILY cap 08/16/19 [History Last Taken Unknown] turmeric root extract 538 mg capsule 538 mg PO DAILY 08/16/19 [History Last Taken Unknown] albuterol sulfate 90 mcg/actuation aerosol inhaler 2 puff INHALATION Q4H PRN #18 g 10/10/20 [Rx Last Taken Unknown] mecobalamin (vitamin B12) 5,000 mcg lozenge 5,000 mcg PO DAILY 01/05/21 [History Last Taken Unknown] potassium chloride 20 mEq tablet,extended release 20 meq PO DAILY 01/05/21 [History Last Taken Unknown] pyridoxine (vitamin B6) 100 mg tablet 200 mg PO DAILY tablet 01/05/21 [History Last Taken Unknown] vitamin A 2,400 mcg capsule 2,400 mcg PO DAILY 01/05/21 [History Last Taken U nknown] zinc 50 mg tablet 50 mg PO DAILY 01/05/21 [History Last Taken Unknown] acetaminophen 500 mg tablet 1,000 mg PO Q6H PRN tab 08/13/21 [History Last Taken Unknown] azelastine 137 mcg (0.1 %) nasal spray aerosol 2 spray INTRANASAL BID PRN ml 08/13/21 [History Last Taken Unknown] finasteride 5 mg tablet 5 mg PO DAILY 08/13/21 [History Last Taken Unknown] fluticasone propionate 50 mcg/actuation nasal spray,suspension 1 spray INTRANASAL BID PRN ml 08/13/21 [History Last Taken Unknown] furosemide 40 mg tablet 40 mg PO BID tab 09/29/21 [History Last Taken Unknown] amiodarone 200 mg PO DAILY 10/09/21 [History Last Taken Unknown] apixaban [Eliquis] 5 mg PO BID 10/09/21 [History Last Taken Unknown] budesonide-formoterol [Symbicort] 2 inh INHALATION BID 10/09/21 [History Last Taken Unknown] metolazone 5 mg PO .COMPLEX 10/09/21 [History Last Taken Unknown] Allergy/AdvReac Type Severity Reaction Status Date / Time codeine Allergy Intermediate unknown Verified 09/29/21 15:55 acetaminophen [From Vicodin] Allergy Unknown Verified 09/29/21 15:55 hydrocodone Allergy Unknown Verified 09/29/21 15:55 Family History Mother A-fib Father Cancer Surgical History H/O hernia repair H/O left knee surgery H/O removal of cyst H/O repair of rotator cuff History of bilateral cataract extraction History of total right knee replacement (07/28/21) Social History Smoking Status: Never smoker second hand exposure: No alcohol intake: never substance use type: does not use caffeine: Yes Type: carbonated beverages Number of servings: 1 Results Lab / Micro Data Result Diagrams: 10/09/21 16:38 10/09/21 16:38
--- NOTE | 2021-10-09 21:08 | EKG12_ITS ---
Test Reason : CP ADMIT Blood Pressure : / mmHG Vent. Rate : 101 BPM Atrial Rate : 105 BPM P-R Int : 000 ms QRS Dur : 178 ms QT Int : 454 ms P-R-T Axes : 000 112 -29 degrees QTc Int : 588 ms Atrial fibrillation Right bundle branch block Septal infarct , age undetermined Abnormal ECG When compared with ECG of 09-OCT-2021 17:09, MANUAL COMPARISON REQUIRED, DATA IS UNCONFIRMED Confirmed by LISA BRANHAM, JJ ([id number]), publishing editor CONOR NORTON ([id number]) on 10/13/2021 8:47:48 AM Referred By: DR BUTTS Confirmed By:JJ GONZALEZ MD
[2021-10-09] MEDS: Potassium Chloride Oral Tablet 20 MEQ 40 MEQ PO (21:41)
[2021-10-09] MEDS: APIXABAN 5 MG TABLET PO (22:17)
--- NOTE | 2021-10-09 22:37 | PCS.PANDOC ---
PANDEMIC DOCUMENTATION INITIATED: Date: 04/27/2021 Time: 190
[2021-10-09] MEDS: Budesonide Respules 0.5 MG/2 ML AMPUL.NEB. INHALATION (23:07)
[2021-10-09] MEDS: Albuterol 2.5 MG/3 ML VIAL.NEB. INHALATION (23:08)
[2021-10-10] MEDS: 0.9% Saline Lock 10 ML Syringe IV ×2 (08:00→17:05)
[2021-10-10] MEDS: Cholecalciferol (VIT D3) 25 MCG TABLET (1,000 UNITS) PO (09:05)
[2021-10-10] MEDS: Amiodarone 200 MG Tablet PO (09:05)
[2021-10-10] MEDS: Finasteride 5 MG Tablet PO (09:05)
[2021-10-10] MEDS: APIXABAN 5 MG TABLET PO ×2 (09:05→21:30)
[2021-10-10] MEDS: Furosemide 40 MG/4 ML Vial IV ×4 (09:05→17:30)
[2021-10-10] MEDS: Potassium Chloride Oral Tablet 20 MEQ PO (10:00)
--- NOTE | 2021-10-10 14:23 | PN_ITS ---
DATE OF SERVICE 10/10/21 SUBJECTIVE Patient seen and examined. States shortness of breath and swelling are improving. Still unable to lie flat due to shortness of breath. OBJECTIVE Physical exam: General appearance: Awake, appropriate, no noted distress HEENT: Normocephalic, head/scalp atraumatic Eyes: Conjunctiva normal and no scleral icterus Neck: Supple, no lymphadenopathy, trachea midline Respiratory: Diminished, clear to auscultation Cardio: Regular rate, regular rhythm GI: Soft, nondistended, nontender, normal active bowel sounds Extremity: Normal capillary refill, +2 bilateral lower extremity edema Skin: No lesions, no rashes, no breakdown Neuro: No focal motor deficits and no sensory deficits noted Psych: Normal affect Vital signs and lab data reviewed. Potassium 3.2. Creatinine 1.67. Hemodynamically stable. ASSESSMENT/PLAN 1. Acute on chronic heart failure with reduced ejection fraction/cardiomyopathy-continue IV Lasix, strict I&O, daily weight. Diuresing well. Echocardiogram 05/15/2021 demonstrated an EF of 35%. Dwayne wraps. 2. Hypokalemia-replaced per protocol, trend BMP. 3. Chronic kidney disease stage III, unclear subtype-creatinine improving with diuresis. Trend BMP. 4. Chronic COPD-as needed albuterol aerosols. 5. Paroxysmal atrial fibrillation-on amiodarone, Eliquis. 6. Chronic anemia-macrocytic. Stable. 7. BPH- on finasteride. DVT prophylaxis-Eliquis This patient was seen by SUE Parra under the supervision of Dr. Gaxiola. Time spent examining patient, reviewing data and subsequent management of care: 12 Patient was seen and examined today independently of Renetta Camarillo, he was admitted yesterday with shortness of breath and required supplemental oxygen initially in the emergency room, he does not require any oxygen at this time. 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 Patient had been on spironolactone before in the past but got breast tenderness with this medication and had to be taken off of it. Patient also was on Entresto, he stated his blood pressure declined with his medication and he had to be taken off of it. Patient only takes 1 furosemide daily at home. Vitals: Temperature 98.5, respirations 20, pulse 76, pulse ox on room air 97%, blood pressure 96/57. On examination he appeared in good health and spirits. Vital signs as documented. Skin warm and dry and without overt rashes. Neck without JVD, neck was supple, trachea midline, thyroid was normal. Lungs clear bilaterally, normal air movement was noted. Heart exam notable for regular rhythm, normal sounds and absence of murmurs, rubs or gallops. Abdomen unremarkable and without evidence of organomegaly, masses, or abdominal aortic enlargement. Bowel sounds are present, abdomen is not distended. Extremities-+3 mm pitting edema was noted over both lower legs, no cyanosis was noted, no clubbing was noted. Neuro: Cranial nerves II through XII are grossly intact, no focal motor deficits were noted, sensation to light touch and pinprick intact, motor exam 5/5 throughout. Psych: Patient is alert and oriented x3, he does not appear anxious or depressed, he does not appear agitated. Impression: #1 acute on chronic systolic congestive heart failure-patient will continue on IV diuresis for now, patient states he does feel better #2 nonischemic cardiomyopathy-patient follows up with Dr. Sherwood regarding this, he states he has had a cardiac catheterization in the past which showed no coronary artery disease. #3 chronic kidney disease-probable IIIa-continue to monitor labs #4 chronic obstructive pulmonary disease-patient is currently on as needed aerosol treatments #5 paroxysmal A. fib-patient is currently on Eliquis and amiodarone #6 benign prostatic hypertrophy-patient is currently on Flomax #7 chronic macrocytic anemia-etiology unclear, patient's labs will be monitored #8 hypokalemia-corrected at this time, labs will be monitored Total clinical time spent by myself with this patient: 18 minutes
[2021-10-10 19:09] LABS: Troponin-I HS 125 pg/mL (3.0-78.0)
[2021-10-10 19:10] LABS: ALB/GLOB Ratio 0.9 RATIO (0.9-2.4); AST(SGOT) 29 U/L (15-37); Alanine Aminotransfer ALT/SGPT 31 U/L (16-61); Alkaline Phosphatase 85 U/L (45-117); Anion Gap 8 (5-15); BUN 32 mg/dL (7-18); BUN/Creat Ratio 19.2 RATIO (10-20); Calcium,Total 8.6 mg/dL (8.5-10.1); Chloride 102 mmol/L (98-107); Cholesterol 116 mg/dL (200); Creatinine, Serum 1.67 mg/dL (0.70-1.30); Estimated Creatinine Clearance 35.27 ml/min; Globulin 3.4 g/dL (2.2-4.2); Glucose 109 mg/dL (74-106); High Density Lipoprotein 66 mg/dL; Potassium 3.2 mmol/L (3.5-5.1); Protein, Total 6.4 g/dL (6.4-8.2); Sodium Level 140 mmol/L (136-145); Thyroid Stim Hormone (TSH) 6.44 uIU/mL (0.358-3.74); Triglycerides 39 mg/dL; Very Low Density Lipoprotein 8 mg/dL (5-40)
[2021-10-10 22:23] LABS: Absolute Lymphocyte Count 1.16 X10^3/uL (0.83-4.51); Absolute Neutrophil Count 2.4 X10^3/uL (2.0-7.7); Basophil# 0.05 X10^3/uL; Basophil% 1.2 % (0-1); Differential Indicated SCAN CRITERIA MET; Eosinophil# 0.07 X10^3/uL; Eosinophils% 1.7 % (0-5); Hematocrit 34.2 % (40-54); Hemoglobin 11.2 g/dL (13.0-16.5); Lymphocyte # 1.16 X10^3/ul (0.83-4.51); Lymphocyte % 28.2 % (19-41); Mean Corp Hgb Conc 32.7 g/dL (32-36); Mean Corpuscular Hgb 33.9 pg (27.0-32.0); Mean Corpuscular Volume 103.6 fL (80-94); Mean Platelet Vol. 11.4 fl (6.2-12.0); Monocyte# 0.48 X10^3/uL; Monocyte% 11.7 % (0-10); NRBC Flagged by Analyzer 0 % (0-5); Neutrophil # 2.35 X10^3/uL (2.7-7.7); POSITIVE COUNT YES; Platelet Count 120 K/mm3 (150-450); RBC Distribution Width SD 60.7 fl (35.1-43.9); White Blood Count 4.1 K/mm3 (4.4-11.0)
[2021-10-10 22:24] LABS: Differential Comment SCANNED
[2021-10-11 02:52] VITALS: BP 98/67; PULSE 84; RESP 16; TEMP 36.7; O2SAT 98
[2021-10-11 02:54] VITALS: O2SAT 100
[2021-10-11 03:00] VITALS: PULSE 84
[2021-10-11 06:55] VITALS: PULSE 79; RESP 18; O2SAT 96
[2021-10-11] MEDS: Albuterol 2.5 MG/3 ML VIAL.NEB. INHALATION (06:55)
[2021-10-11] MEDS: Budesonide Respules 0.5 MG/2 ML AMPUL.NEB. INHALATION (06:55)
[2021-10-11 07:01] VITALS: PULSE 75
[2021-10-11 07:30] LABS: Anion Gap 8 (5-15); BUN 36 mg/dL (7-18); BUN/Creat Ratio 21.4 RATIO (10-20); Calcium,Total 8.7 mg/dL (8.5-10.1); Chloride 101 mmol/L (98-107); Creatinine, Serum 1.68 mg/dL (0.70-1.30); EST Glomerular Filtration Rate 42 mL/min (>60); Est Glom Filt Rate - Afr Amer 51 mL/min (>60); Estimated Creatinine Clearance 35.06 ml/min; Glucose 93 mg/dL (74-106); Potassium 3.1 mmol/L (3.5-5.1); Sodium Level 141 mmol/L (136-145)
[2021-10-11 09:00] VITALS: BP 96/67; PULSE 95; RESP 16; TEMP 36.8; O2SAT 96
[2021-10-11] MEDS: Potassium Chloride Oral Tablet 20 MEQ PO ×2 (09:04)
[2021-10-11] MEDS: APIXABAN 5 MG TABLET PO (09:05)
[2021-10-11] MEDS: Finasteride 5 MG Tablet PO (09:05)
[2021-10-11] MEDS: Amiodarone 200 MG Tablet PO (09:05)
[2021-10-11] MEDS: Cholecalciferol (VIT D3) 25 MCG TABLET (1,000 UNITS) PO (09:06)
--- NOTE | 2021-10-11 09:52 | PCM.DC ---
Discharge Instructions Diet Discharge Diet: 8 Cup Fluid Restriction and 2000 mg Sodium Diet Activity Discharge Activity: Return to Normal Activity Dressing / Incision Call your doctor if you observe: Shortness of breath, Dizziness, Chest pain and - (Increased swelling) Follow Up Care Test Results: Test results from this visit will be discussed in further detail at your follow-up appointment, if applicable. Discharge Plan Admission Admit Date/Time: 10/09/21 19:24 Primary Reason for Your Visit: Heart Failure Attending Provider: Tra Gaxiola Primary Care Provider: Tavon Salter Discharge Orders/Prescriptions Prescriptions: New spironolactone [Aldactone] 25 mg tablet 12.5 mg PO DAILY Qty: 30 RF: 0 Continued vit C,V-Oy-xzzzu-lutein-zeaxan [PreserVision AREDS-2] [id number] me-qwtg-fr-mg capsule 1 tab PO .daily RF: 0 cholecalciferol (vitamin D3) 1,000 unit capsule 1,000 unit PO DAILY RF: 0 fluticasone propionate 50 mcg/actuation spray,suspension 1 spray INTRANASAL BID PRN (Reason: spray) RF: 0 turmeric root extract 538 mg capsule 538 mg PO DAILY RF: 0 glucosamine sulfate 1,000 mg capsule 1,000 mg PO DAILY RF: 0 albuterol sulfate [ProAir HFA] 90 mcg/actuation HFA aerosol inhaler 2 puff INHALATION Q4H PRN (Reason: shortness of breath or wheezing) Qty: 18 RF: 3 azelastine 137 mcg (0.1 %) aerosol,spray 2 spray intranasal BID PRN (Reason: spray) RF: 0 zinc 50 mg tablet 50 mg PO DAILY RF: 0 potassium chloride 20 mEq tablet extended release 20 meq PO DAILY RF: 0 Hold Instructions: while lasix is on hold mecobalamin (vitamin B12) 5,000 mcg lozenge 5,000 mcg PO DAILY RF: 0 vitamin A 2,400 mcg capsule 2,400 mcg PO DAILY RF: 0 acetaminophen [Tylenol Extra Strength] 500 mg tablet 1,000 mg PO Q6H PRN (Reason: Pain) RF: 0 finasteride 5 mg tablet 5 mg PO DAILY RF: 0 ascorbic acid (vitamin C) 500 MG tablet 500 mg PO DAILY@0800 RF: 0 pyridoxine (vitamin B6) 100 mg tablet 200 mg PO DAILY RF: 0 amiodarone 200 mg tablet 200 mg PO DAILY RF: 0 metolazone 5 mg tablet 5 mg PO .COMPLEX RF: 0 budesonide-formoterol [Symbicort] 160-4.5 mcg/actuation HFA aerosol inhaler 2 inh inhalation BID RF: 0 Eliquis 5 mg tablet 5 mg PO BID RF: 0 furosemide [Lasix] 40 mg tablet 40 mg PO BID RF: 0 Hold Instructions: Hypotension Referrals / Follow Up: Michoacano Sherwood MD [STAFF PHYSICIAN] - In 1 Week (May see ELECTRICAL PROSPECTING OBSERVER/PA) Tavon Salter DO [Primary Care Provider] - In 1 Week Disposition Disposition (needs filled in before D/C Order can be placed): Home, Self Care
--- NOTE | 2021-10-11 10:56 | DS.PCM_ITS ---
Documented by User: Renetta Camarillo NP, FISHERIES TECHNICIAN-C 10/11/21 11:05 Providers Date of Admission: 10/09/21 Date of Discharge: 10/11/21 Primary Care Physician: Dr. Tavon Salter DO Reason For Visit: SUSPECTED CHF EXAC VS COVID Diagnosis Discharge Diagnosis (1) Acute on chronic HFrEF (heart failure with reduced ejection fraction): Status: Chronic Code(s): I50.23 - Acute on chronic systolic (congestive) heart failure (2) COPD (chronic obstructive pulmonary disease): Status: Chronic Code(s): J44.9 - Chronic obstructive pulmonary disease, unspecified Qualifiers: COPD type: unspecified COPD Qualified Code(s): J44.9 - Chronic obstructive pulmonary disease, unspecified Medications at Discharge Home Medications ascorbic acid (vitamin C) 500 mg PO DAILY@0800 06/03/16 vit C 250 mg-vit E 90 mg-zinc 40 mg-copper 1 yb-osjktr-lbpfmo capsule 1 tab PO .daily cap 08/25/17 cholecalciferol (vitamin D3) 25 mcg (1,000 unit) capsule 1,000 unit PO DAILY cap 08/16/19 glucosamine sulfate 1,000 mg capsule 1,000 mg PO DAILY cap 08/16/19 turmeric root extract 538 mg capsule 538 mg PO DAILY 08/16/19 albuterol sulfate 90 mcg/actuation aerosol inhaler 2 puff INHALATION Q4H PRN #18 g 10/10/20 mecobalamin (vitamin B12) 5,000 mcg lozenge 5,000 mcg PO DAILY 01/05/21 potassium chloride 20 mEq tablet,extended release 20 meq PO DAILY 01/05/21 pyridoxine (vitamin B6) 100 mg tablet 200 mg PO DAILY tablet 01/05/21 vitamin A 2,400 mcg capsule 2,400 mcg PO DAILY 01/05/21 zinc 50 mg tablet 50 mg PO DAILY 01/05/21 acetaminophen 500 mg tablet 1,000 mg PO Q6H PRN tab 08/13/21 azelastine 137 mcg (0.1 %) nasal spray aerosol 2 spray INTRANASAL BID PRN ml 08/13/21 finasteride 5 mg tablet 5 mg PO DAILY 08/13/21 fluticasone propionate 50 mcg/actuation nasal spray,suspension 1 spray INTRANASAL BID PRN ml 08/13/21 furosemide 40 mg tablet 40 mg PO BID tab 09/29/21 Eliquis 5 mg PO BID 10/09/21 amiodarone 200 mg PO DAILY 10/09/21 budesonide-formoterol [Symbicort] 2 inh INHALATION BID 10/09/21 metolazone 5 mg PO .COMPLEX 10/09/21 spironolactone [Aldactone] 12.5 mg PO DAILY #30 tab 10/11/21 Hospital Course Operations None Procedures None Summary of Care Provided Hospital Course: Patient is a 76-year-old male admitted 10/09/2021 due to shortness of breath. 1. Acute on chronic heart failure with reduced ejection fraction/ cardiomyopathy-IV Lasix during admission. Echocardiogram 05/15/2021 demonstrated an EF of 35%. Continue Lasix 40 mg twice daily and metolazone Tuesday, Tuesday, Tuesday as previously prescribed. Aldactone 12.5 mg daily added. If patient develops further chest discomfort, this will need discontinued. Follow- up with PCP and cardiology in 1 week. 2. Hypokalemia-replaced per protocol. Continue supplementation. 3. Chronic kidney disease stage III, stage IIIb-stable. 4. Chronic COPD-as needed albuterol aerosols. 5. Paroxysmal atrial fibrillation-on amiodarone, Eliquis. 6. Chronic anemia-macrocytic. Stable. 7. BPH- on finasteride. Patient seen and examined prior to discharge. Physical assessment as noted below. Patient is stable for discharge with follow up recommendations as noted above. This patient was seen by SUE Parra under the supervision of Dr. Gaxiola. Time spent examining patient, reviewing data and subsequent management of care: 16 Physical Exam Const alert, oriented x3 and no apparent distress Orientation / Consciousness: awake, oriented to person, oriented to place and oriented to time HEENT normocephalic and moist oral mucous membranes Eyes PERRL, EOMs intact bilaterally and conjunctivae normal Neck no lymphadenopathy Resp clear to auscultation bilaterally Auscultation: diminished lung sounds Cardio regular rate, regular rhythm and no murmurs Peripheral Pulses: pulses 2+ throughout GI normal to inspection, nondistended, normoactive bowel sounds, non-tender and non-distended Extremity normal to inspection General Extremity: edema bilateral lower extremity (Improved, Dwayne wraps intact) Skin no rashes or lesions noted Lesions: no lesions Rashes: no rashes Trauma: no lacerations or abrasions Neuro CN's II-XII intact bilaterally, no focal motor deficits, no sensory deficits n oted and deep tendon reflexes 2+ bilaterally Psych mental status grossly normal and affect normal Weight / BMI Weight Weight: 207 lb 0.225 oz Body Mass Index (BMI) 32.4 ABG / Lab / Microbiology Data Result Diagrams: 10/10/21 03:54 10/11/21 04:05 Laboratory: Laboratory Results - last 24 hr 10/09/21 19:35: COVID-19 (TAINA) Not Detected 10/09/21 23:15: Troponin I High Sens 125 H* 10/10/21 03:54: WBC 4.1 L, RBC 3.30 L, Hgb 11.2 L, Hct 34.2 L, MCV 103.6 H, MCH 33.9 H, MCHC 32.7, RDW Std Deviation 60.7 H, RDW Coeff of Saurav 16.0 H, Plt Count 120 L, MPV 11.4, Immature Gran % (Auto) 0.200, Neut % (Auto) 57.0, Lymph % (Auto) 28.2, [place] % (Auto) 11.7 H, Eos % (Auto) 1.7, Baso % (Auto) 1.2 H, Absolute Neuts (auto) 2.4, Absolute Lymphs (auto) 1.16, Nucleated RBC % 0, Differential Comment SCANNED 10/10/21 03:54: Sodium 140, Potassium 3.2 L, Chloride 102, Carbon Dioxide 30.0, Anion Gap 8, BUN 32 H, Creatinine 1.67 H, Estim Creat Clear Calc 35.27, Est GFR (MDRD) Af Amer TNP, Est GFR (MDRD) Non-Af TNP, BUN/Creatinine Ratio 19.2, Glucose 109 H, Calcium 8.6, Total Bilirubin 0.90, AST 29, ALT 31, Alkaline Phosphatase 85, Total Protein 6.4, Albumin 3.0 L, Globulin 3.4, Albumin/Globulin Ratio 0.9, Triglycerides 39, Cholesterol 116, LDL Cholesterol 42, VLDL Cholesterol 8, HDL Cholesterol 66, TSH 6.44 H 10/11/21 04:05: Sodium 141, Potassium 3.1 L, Chloride 101, Carbon Dioxide 32.0, Anion Gap 8, BUN 36 H, Creatinine 1.68 H, Estim Creat Clear Calc 35.06, Est GFR (MDRD) Af Amer 51 L, Est GFR (MDRD) Non-Af 42 L, BUN/Creatinine Ratio 21.4 H, Glucose 93, Calcium 8.7 Microbiology: Microbiology 10/09/21 17:05 Nasal Secretion SARS-CoV-2 Antigen (Rapid) - Final D/C Instructions Discharge Diet: 8 Cup Fluid Restriction and 2000 mg Sodium Diet Call your doctor if you observe: Shortness of breath, Dizziness, Chest pain and - (Increased swelling) Meaningful Use Info Meaningful Use Diagnoses (Choose all that apply): CHF CHF DWAYNE/ARB ordered at discharge?: No Reason DWAYNE/ARB not ordered?: Hypotension Documented LVEF (%): 35 Discharge Plan Admission Admit Date/Time: 10/09/21 19:24 Primary Reason for Your Visit: Heart Failure Attending Provider: Tra Gaxiola Primary Care Provider: Tavon Salter Discharge Orders/Prescriptions Prescriptions: New spironolactone [Aldactone] 25 mg tablet 12.5 mg PO DAILY Qty: 30 RF: 0 Continued vit C,U-Kf-brdkq-lutein-zeaxan [PreserVision AREDS-2] [id number] na-hyml-ea-mg capsule 1 tab PO .daily RF: 0 cholecalciferol (vitamin D3) 1,000 unit capsule 1,000 unit PO DAILY RF: 0 fluticasone propionate 50 mcg/actuation spray,suspension 1 spray INTRANASAL BID PRN (Reason: spray) RF: 0 turmeric root extract 538 mg capsule 538 mg PO DAILY RF: 0 glucosamine sulfate 1,000 mg capsule 1,000 mg PO DAILY RF: 0 albuterol sulfate [ProAir HFA] 90 mcg/actuation HFA aerosol inhaler 2 puff INHALATION Q4H PRN (Reason: shortness of breath or wheezing) Qty: 18 RF: 3 azelastine 137 mcg (0.1 %) aerosol,spray 2 spray intranasal BID PRN (Reason: spray) RF: 0 zinc 50 mg tablet 50 mg PO DAILY RF: 0 potassium chloride 20 mEq tablet extended release 20 meq PO DAILY RF: 0 Hold Instructions: while lasix is on hold mecobalamin (vitamin B12) 5,000 mcg lozenge 5,000 mcg PO DAILY RF: 0 vitamin A 2,400 mcg capsule 2,400 mcg PO DAILY RF: 0 acetaminophen [Tylenol Extra Strength] 500 mg tablet 1,000 mg PO Q6H PRN (Reason: Pain) RF: 0 finasteride 5 mg tablet 5 mg PO DAILY RF: 0 ascorbic acid (vitamin C) 500 MG tablet 500 mg PO DAILY@0800 RF: 0 pyridoxine (vitamin B6) 100 mg tablet 200 mg PO DAILY RF: 0 amiodarone 200 mg tablet 200 mg PO DAILY RF: 0 metolazone 5 mg tablet 5 mg PO .COMPLEX RF: 0 budesonide-formoterol [Symbicort] 160-4.5 mcg/actuation HFA aerosol inhaler 2 inh inhalation BID RF: 0 Eliquis 5 mg tablet 5 mg PO BID RF: 0 furosemide [Lasix] 40 mg tablet 40 mg PO BID RF: 0 Hold Instructions: Hypotension Referrals / Follow Up: Michoacano Sherwood MD [STAFF PHYSICIAN] - In 1 Week (May see FISHERIES TECHNICIAN/PA) Tavon Salter DO [Primary Care Provider] - In 1 Week Disposition Disposition (needs filled in before D/C Order can be placed): Home, Self Care Documented by User: Dr. Tra Gaxiola DO 10/11/21 16:09 Providers Date of Admission: 10/09/21 Reason For Visit: SUSPECTED CHF EXAC VS COVID Medications at Discharge Home Medications ascorbic acid (vitamin C) 500 mg PO DAILY@0800 06/03/16 vit C 250 mg-vit E 90 mg-zinc 40 mg-copper 1 qy-hsmzne-rhutcc capsule 1 tab PO .daily cap 08/25/17 cholecalciferol (vitamin D3) 25 mcg (1,000 unit) capsule 1,000 unit PO DAILY cap 08/16/19 glucosamine sulfate 1,000 mg capsule 1,000 mg PO DAILY cap 08/16/19 turmeric root extract 538 mg capsule 538 mg PO DAILY 08/16/19 albuterol sulfate 90 mcg/actuation aerosol inhaler 2 puff INHALATION Q4H PRN #18 g 10/10/20 mecobalamin (vitamin B12) 5,000 mcg lozenge 5,000 mcg PO DAILY 01/05/21 potassium chloride 20 mEq tablet,extended release 20 meq PO DAILY 01/05/21 pyridoxine (vitamin B6) 100 mg tablet 200 mg PO DAILY tablet 01/05/21 vitamin A 2,400 mcg capsule 2,400 mcg PO DAILY 01/05/21 zinc 50 mg tablet 50 mg PO DAILY 01/05/21 acetaminophen 500 mg tablet 1,000 mg PO Q6H PRN tab 08/13/21 azelastine 137 mcg (0.1 %) nasal spray aerosol 2 spray INTRANASAL BID PRN ml 08/13/21 finasteride 5 mg tablet 5 mg PO DAILY 08/13/21 fluticasone propionate 50 mcg/actuation nasal spray,suspension 1 spray INTRANASAL BID PRN ml 08/13/21 furosemide 40 mg tablet 40 mg PO BID tab 09/29/21 Eliquis 5 mg PO BID 10/09/21 amiodarone 200 mg PO DAILY 10/09/21 budesonide-formoterol [Symbicort] 2 inh INHALATION BID 10/09/21 metolazone 5 mg PO .COMPLEX 10/09/21 spironolactone [Aldactone] 12.5 mg PO DAILY #30 tab 10/11/21 ABG / Lab / Microbiology Data Result Diagrams: 10/10/21 03:54 10/11/21 04:05 Discharge Plan Admission Admit Date/Time: 10/09/21 19:24 Primary Reason for Your Visit: Heart Failure Attending Provider: Tra Gaxiola Primary Care Provider: Tavon Salter Discharge Orders/Prescriptions Prescriptions: New spironolactone [Aldactone] 25 mg tablet 12.5 mg PO DAILY Qty: 30 RF: 0 Continued vit C,K-De-rcrfc-lutein-zeaxan [PreserVision AREDS-2] 828-171-04-1 ss-xfyk-pz-mg capsule 1 tab PO .daily RF: 0 cholecalciferol (vitamin D3) 1,000 unit capsule 1,000 unit PO DAILY RF: 0 fluticasone propionate 50 mcg/actuation spray,suspension 1 spray INTRANASAL BID PRN (Reason: spray) RF: 0 turmeric root extract 538 mg capsule 538 mg PO DAILY RF: 0 glucosamine sulfate 1,000 mg capsule 1,000 mg PO DAILY RF: 0 albuterol sulfate [ProAir HFA] 90 mcg/actuation HFA aerosol inhaler 2 puff INHALATION Q4H PRN (Reason: shortness of breath or wheezing) Qty: 18 R F: 3 azelastine 137 mcg (0.1 %) aerosol,spray 2 spray intranasal BID PRN (Reason: spray) RF: 0 zinc 50 mg tablet 50 mg PO DAILY RF: 0 potassium chloride 20 mEq tablet extended release 20 meq PO DAILY RF: 0 Hold Instructions: while lasix is on hold mecobalamin (vitamin B12) 5,000 mcg lozenge 5,000 mcg PO DAILY RF: 0 vitamin A 2,400 mcg capsule 2,400 mcg PO DAILY RF: 0 acetaminophen [Tylenol Extra Strength] 500 mg tablet 1,000 mg PO Q6H PRN (Reason: Pain) RF: 0 finasteride 5 mg tablet 5 mg PO DAILY RF: 0 ascorbic acid (vitamin C) 500 MG tablet 500 mg PO DAILY@0800 RF: 0 pyridoxine (vitamin B6) 100 mg tablet 200 mg PO DAILY RF: 0 amiodarone 200 mg tablet 200 mg PO DAILY RF: 0 metolazone 5 mg tablet 5 mg PO .COMPLEX RF: 0 budesonide-formoterol [Symbicort] 160-4.5 mcg/actuation HFA aerosol inhaler 2 inh inhalation BID RF: 0 Eliquis 5 mg tablet 5 mg PO BID RF: 0 furosemide [Lasix] 40 mg tablet 40 mg PO BID RF: 0 Hold Instructions: Hypotension Referrals / Follow Up: Michoacano Sherwood MD [STAFF PHYSICIAN] - In 1 Week (May see FISHERIES TECHNICIAN/PA) Tavon Salter DO [Primary Care Provider] - In 1 Week Disposition Disposition (needs filled in before D/C Order can be placed): Home, Self Care Charges/Coding Addendum Addendum: Patient was seen and examined independently of Renetta Camarillo today, his lower extremity edema appears to have improved, patient does not require s upplemental oxygen. On examination he appeared in good health and spirits. Vital signs as documente d. Skin warm and dry and without overt rashes. Neck without JVD, neck was supple, trachea midline, thyroid was normal. Lungs clear bilaterally, normal air movement was noted. Heart exam notable for regular rhythm, normal sounds and absence of murmurs, rubs or gallops. Abdomen unremarkable and without evidence of organomegaly, masses, or abdominal aortic enlargement. Bowel sounds are present, abdomen is not distended. Extremities-+1 to 2 mm edema over the lower legs, no cyanosis was noted, no clubbing was noted. Neuro: Cranial nerves II through XII are grossly intact, no focal motor deficits were noted, sensation to light touch and pinprick intact, motor exam 5/5 throughout. Psych: Patient is alert and oriented x3, he does not appear anxious or depressed, he does not appear agitated. Impression: #1 acute on chronic systolic congestive heart failure #2 nonischemic cardiomyopathy #3 chronic obstructive pulmonary disease #4 paroxysmal A. fib #5 long-term use of anticoagulants secondary to #4 Patient appeared stable for discharge home on 10/11/2021, I have reviewed Renetta Camarillo's discharge summary including her medical assessment and plan of care and endorse it. Total clinical time that I spent with this patient today: 18 minutes Visit Charges Inpatient E&M: 79810 Disch Hosp
[2021-10-11] MEDS: Magnesium Citrate 300 ML 150 ML PO (12:20)
== END 2021-10-11 13:03 | disposition home or self-care (01) | DRG 291 ==
LOC: ED 19:36 → PCU 19:57
PROVIDERS: Physician Assistant; Admitting Provider Family Medicine; Emergency Provider Student in an Organized Health Care Education/Training Program; PCP Preventive Medicine Occupational Medicine; Visit Provider Internal Medicine
DX: I13.0 Hypertensive heart and chronic kidney disease with heart failure and stage 1 through stage 4 chronic kidney disease, or unspecified chronic kidney disease (principal); I50.23 Acute on chronic systolic (congestive) heart failure; I42.8 Other cardiomyopathies; Z79.01 Long term (current) use of anticoagulants; J44.9 Chronic obstructive pulmonary disease, unspecified; I48.0 Paroxysmal atrial fibrillation; N18.32 Chronic kidney disease, stage 3b; D53.9 Nutritional anemia, unspecified; E87.6 Hypokalemia; E78.5 Hyperlipidemia, unspecified; I45.10 Unspecified right bundle-branch block; N40.0 Benign prostatic hyperplasia without lower urinary tract symptoms; Z66 Do not resuscitate; I49.3 Ventricular premature depolarization; E66.9 Obesity, unspecified; Z79.51 Long term (current) use of inhaled steroids; Z68.32 Body mass index [BMI] 32.0-32.9, adult
CPT/HCPCS: 36415; 71045; 80048; 80053; 80061; 83735; 83880; 84443; 84484; 85025; 87426; 87635; 93005; 94640; 99284; A4216; J1940; U0003; U0005

== ENCOUNTER 2021-12-01 16:45 | Outpatient (CLI) | payer MEDICARE, OTHER, SELFPAY ==
--- NOTE | 2021-12-01 17:08 | RAD_ITS ---
STUDY: CHEST SERIES-CHEST PA AND LATERAL VIEWS OF 1620 HOURS ON 12/01/2021 REASON FOR EXAM: 76-year-old male with shortness of breath. TECHNIQUE: A standard chest x-ray series was performed per protocol. COMPARISON: 10/09/2021. FINDINGS: Mild demineralization. Moderate cardiomegaly without heart failure. No confluent infiltrates, or effusion. Minimal atelectatic changes in left lower lobe. No evidence of pulmonary mass lesions. There has been interval resolution of the bilateral pleural effusions that were noted in the study 10/01/2021. RAD/Chest PA and Lateral IMPRESSION: 1. Moderate cardiomegaly without heart failure. 2. No confluent infiltrates, effusion, or pulmonary mass lesions. 3. Minimal atelectatic changes in the left lower lobe. 4. Mild demineralization. Electronically Signed: Migel Corea MD at 22:02 EDT ,
[2021-12-01 17:13] LABS: Absolute Lymphocyte Count 1.16 X10^3/uL (0.83-4.51); Absolute Neutrophil Count 3.9 X10^3/uL (2.0-7.7); Basophil# 0.04 X10^3/uL; Basophil% 0.7 % (0-1); Eosinophil# 0.04 X10^3/uL; Eosinophils% 0.7 % (0-5); Hemoglobin 12.3 g/dL (13.0-16.5); Lymphocyte # 1.16 X10^3/ul (0.83-4.51); Lymphocyte % 20.4 % (19-41); Mean Corp Hgb Conc 35.1 g/dL (32-36); Mean Corpuscular Hgb 34.6 pg (27.0-32.0); Mean Corpuscular Volume 98.6 fL (80-94); Mean Platelet Vol. 10.8 fl (6.2-12.0); Monocyte# 0.53 X10^3/uL; Monocyte% 9.3 % (0-10); NRBC Flagged by Analyzer 0 % (0-5); Neutrophil # 3.89 X10^3/uL (2.7-7.7); Neutrophil % 68.5 % (47-70); Platelet Count 128 K/mm3 (150-450); RBC Distribution Width CV 16.6 % (11.6-14.6); RBC Distribution Width SD 60.7 fl (35.1-43.9); Red Blood Count 3.55 M/mm3 (4.6-6.2); White Blood Count 5.7 K/mm3 (4.4-11.0)
[2021-12-01 17:25] LABS: Anion Gap 6 (5-15); BUN 77 mg/dL (7-18); BUN/Creat Ratio 36.3 RATIO (10-20); Calcium,Total 9.5 mg/dL (8.5-10.1); Chloride 97 mmol/L (98-107); Creatinine, Serum 2.12 mg/dL (0.70-1.30); EST Glomerular Filtration Rate 32 mL/min (>60); Est Glom Filt Rate - Afr Amer 39 mL/min (>60); Glucose 94 mg/dL (74-106); Potassium 2.9 mmol/L (3.5-5.1); Sodium Level 138 mmol/L (136-145)
[2021-12-01 17:30] LABS: BNP,B-Type NATRIURETIC PEPTIDE 632.2 pg/mL (0-100)
== END 2021-12-01 23:59 | disposition home or self-care (01) ==
PROVIDERS: PCP Preventive Medicine Occupational Medicine; Referring Provider Nurse Practitioner Family; Visit Provider Nurse Practitioner Family
DX: R06.02 Shortness of breath (principal); I42.9 Cardiomyopathy, unspecified
CPT/HCPCS: 36415; 71046; 80048; 83880; 85025

== ENCOUNTER 2021-12-10 05:52 | Outpatient (CLI) | payer MEDICARE, OTHER, SELFPAY ==
[2021-12-10 07:50] LABS: Anion Gap 6 (5-15); BUN 78 mg/dL (7-18); BUN/Creat Ratio 30.7 RATIO (10-20); Calcium,Total 8.9 mg/dL (8.5-10.1); Chloride 99 mmol/L (98-107); Creatinine, Serum 2.54 mg/dL (0.70-1.30); EST Glomerular Filtration Rate 26 mL/min (>60); Est Glom Filt Rate - Afr Amer 32 mL/min (>60); Glucose 146 mg/dL (74-106); Potassium 4.3 mmol/L (3.5-5.1); Sodium Level 137 mmol/L (136-145)
== END 2021-12-10 23:59 | disposition home or self-care (01) ==
LOC: LAB 05:54
PROVIDERS: PCP Preventive Medicine Occupational Medicine; Referring Provider Nurse Practitioner Family; Visit Provider Nurse Practitioner Family
DX: I50.9 Heart failure, unspecified (principal); E87.6 Hypokalemia; Z79.899 Other long term (current) drug therapy
CPT/HCPCS: 36415; 80048

== ENCOUNTER → 2022-01-21 | Outpatient (CLI) | payer MEDICARE, OTHER, SELFPAY ==
--- NOTE | 2022-01-21 13:40 | RAD_ITS ---
STUDY: X-RAY CHEST REASON FOR EXAM: Male, 76 years old. Crackles R base, SOB, CHF TECHNIQUE: PA and lateral COMPARISON: 12/01/2021. FINDINGS: The lungs are clear and expanded. There is mild blunting of the right and the left costophrenic angle not seen on the previous study. Moderate cardiomegaly Normal mediastinum and randy. Normal visualized pulmonary arteries. Normal visualized aortic arch and descending thoracic aorta. Normal visualized thoracic spine. Normal visualized ribs, clavicles, and shoulders. There is no demonstrated abnormality of the visualized soft tissue structures of the upper abdomen. RAD/Chest PA and Lateral IMPRESSION: There are bilateral small pleural effusions not present on the previous study. There is moderate cardiomegaly. Electronically Signed: Migel Campoverde MD at 23:39 EDT ,
[2022-01-21 14:00] LABS: Anion Gap 8 (5-15); BUN 47 mg/dL (7-18); BUN/Creat Ratio 21.9 RATIO (10-20); Calcium,Total 8.7 mg/dL (8.5-10.1); Chloride 106 mmol/L (98-107); Creatinine, Serum 2.15 mg/dL (0.70-1.30); EST Glomerular Filtration Rate 32 mL/min (>60); Est Glom Filt Rate - Afr Amer 38 mL/min (>60); Glucose 149 mg/dL (74-106); Potassium 4.1 mmol/L (3.5-5.1); Sodium Level 140 mmol/L (136-145)
== END | disposition home or self-care (01) ==
PROVIDERS: PCP Preventive Medicine Occupational Medicine; Visit Provider Nurse Practitioner Gerontology
DX: I34.0 Nonrheumatic mitral (valve) insufficiency (principal); I50.9 Heart failure, unspecified; R06.02 Shortness of breath; R09.89 Other specified symptoms and signs involving the circulatory and respiratory systems
CPT/HCPCS: 36415; 71046; 80048

== ENCOUNTER → 2022-01-25 | Outpatient (CLI) | payer MEDICARE, OTHER, SELFPAY ==
[2022-01-25 08:07] VITALS: BP 106/61; PULSE 52; RESP 16; TEMP 36.1; O2SAT 100; BMI 31.1
[2022-01-25] MEDS: 0.9% NaCl Peripheral Flush Adult/Peds IV ×2 (08:24→08:30)
[2022-01-25] MEDS: Furosemide 40 MG/4 ML Vial IV (08:24)
[2022-01-25 08:36] VITALS: BP 106/60; PULSE 58; RESP 16; TEMP 36.6; O2SAT 99
[2022-01-25 08:47] LABS: Anion Gap 8 (5-15); BUN 45 mg/dL (7-18); Calcium,Total 8.7 mg/dL (8.5-10.1); Chloride 104 mmol/L (98-107); Creatinine, Serum 2.14 mg/dL (0.70-1.30); EST Glomerular Filtration Rate 32 mL/min (>60); Est Glom Filt Rate - Afr Amer 39 mL/min (>60); Estimated Creatinine Clearance 27.52 ml/min; Glucose 94 mg/dL (74-106); Potassium 3.7 mmol/L (3.5-5.1); Sodium Level 143 mmol/L (136-145)
== END | disposition home or self-care (01) ==
LOC: MEDOUTP 07:32
PROVIDERS: PCP Preventive Medicine Occupational Medicine; Referring Provider Physician Assistant Medical; Visit Provider Physician Assistant Medical
DX: I50.23 Acute on chronic systolic (congestive) heart failure (principal)
CPT/HCPCS: 96374; 80048; A4216; J1940

== ENCOUNTER → 2022-01-26 | Outpatient (CLI) | payer MEDICARE, OTHER, SELFPAY ==
[2022-01-26 07:50] VITALS: BP 101/57; PULSE 52; RESP 18; TEMP 35.9; O2SAT 100
[2022-01-26] MEDS: 0.9% NaCl Peripheral Flush Adult/Peds IV ×2 (07:56→08:06)
[2022-01-26] MEDS: Furosemide 40 MG/4 ML Vial IV (07:56)
== END | disposition home or self-care (01) ==
LOC: MEDOUTP 07:28
PROVIDERS: PCP Preventive Medicine Occupational Medicine; Referring Provider Physician Assistant Medical; Visit Provider Physician Assistant Medical
DX: I50.23 Acute on chronic systolic (congestive) heart failure (principal)
CPT/HCPCS: 96374; A4216; J1940

== ENCOUNTER → 2022-01-27 | Outpatient (CLI) | payer MEDICARE, OTHER, SELFPAY ==
[2022-01-27 07:43] VITALS: BP 104/62; PULSE 50; RESP 18; TEMP 36.3; O2SAT 100; BMI 31.1
[2022-01-27] MEDS: 0.9% NaCl Peripheral Flush Adult/Peds IV (07:54)
[2022-01-27] MEDS: Furosemide 40 MG/4 ML Vial IV (07:55)
[2022-01-27 08:16] VITALS: BP 107/62; PULSE 52; RESP 16; TEMP 36.3
[2022-01-27 08:40] LABS: Anion Gap 6 (5-15); BUN 40 mg/dL (7-18); BUN/Creat Ratio 22.7 RATIO (10-20); Calcium,Total 8.1 mg/dL (8.5-10.1); Chloride 105 mmol/L (98-107); Creatinine, Serum 1.76 mg/dL (0.70-1.30); EST Glomerular Filtration Rate 40 mL/min (>60); Est Glom Filt Rate - Afr Amer 48 mL/min (>60); Estimated Creatinine Clearance 33.47 ml/min; Glucose 100 mg/dL (74-106); Potassium 3.5 mmol/L (3.5-5.1); Sodium Level 140 mmol/L (136-145)
== END | disposition home or self-care (01) ==
PROVIDERS: PCP Preventive Medicine Occupational Medicine; Referring Provider Physician Assistant Medical; Visit Provider Physician Assistant Medical
DX: I50.23 Acute on chronic systolic (congestive) heart failure (principal)
CPT/HCPCS: 96374; 80048; A4216; J1940

== ENCOUNTER → 2022-02-09 | Outpatient (CLI) | payer MEDICARE, OTHER, SELFPAY ==
[2022-02-09 09:09] LABS: Anion Gap 8 (5-15); BUN 50 mg/dL (7-18); Calcium,Total 9.1 mg/dL (8.5-10.1); Chloride 103 mmol/L (98-107); Creatinine, Serum 2.17 mg/dL (0.70-1.30); EST Glomerular Filtration Rate 31 mL/min (>60); Est Glom Filt Rate - Afr Amer 38 mL/min (>60); Glucose 116 mg/dL (74-106); Potassium 3.1 mmol/L (3.5-5.1); Sodium Level 141 mmol/L (136-145)
== END | disposition home or self-care (01) ==
LOC: LAB 08:02
PROVIDERS: PCP Preventive Medicine Occupational Medicine; Referring Provider Physician Assistant Medical; Visit Provider Physician Assistant Medical
DX: N18.30 Chronic kidney disease, stage 3 unspecified (principal); I50.9 Heart failure, unspecified
CPT/HCPCS: 36415; 80048

== ENCOUNTER → 2022-02-25 | Outpatient (CLI) | payer MEDICARE, OTHER, SELFPAY ==
--- NOTE | 2022-02-25 07:40 | RAD_ITS ---
EXAM: XR CHEST, 2 VIEWS CLINICAL INDICATION: sob TECHNIQUE: Frontal and lateral views of the chest. This report was created using [employer] report generation technology. COMPARISON: 01/21/2022 FINDINGS: LUNGS AND PLEURAL SPACES: Unremarkable. No consolidation or edema. No pneumothorax. No effusion. HEART: Stable cardiomegaly. MEDIASTINUM: Central airways and mediastinal contour are unremarkable. BONES/JOINTS: Unremarkable. SOFT TISSUES: Unremarkable. RAD/Chest PA and Lateral IMPRESSION: Stable cardiomegaly. No acute pulmonary abnormality. Electronically Signed: Escobar Castellanos MD at 11:13 EDT ,
[2022-02-25 08:04] LABS: Anion Gap 6 (5-15); BUN 61 mg/dL (7-18); BUN/Creat Ratio 22.5 RATIO (10-20); Calcium,Total 9.2 mg/dL (8.5-10.1); Chloride 105 mmol/L (98-107); Creatinine, Serum 2.71 mg/dL (0.70-1.30); EST Glomerular Filtration Rate 24 mL/min (>60); Est Glom Filt Rate - Afr Amer 29 mL/min (>60); Glucose 105 mg/dL (74-106); Sodium Level 142 mmol/L (136-145)
== END | disposition home or self-care (01) ==
PROVIDERS: PCP Preventive Medicine Occupational Medicine; Referring Provider Physician Assistant Medical; Visit Provider Physician Assistant Medical
DX: N18.30 Chronic kidney disease, stage 3 unspecified (principal)
CPT/HCPCS: 36415; 71046; 80048

== ENCOUNTER → 2022-03-02 | Outpatient (CLI) | payer MEDICARE, OTHER, SELFPAY ==
[2022-03-02 08:02] LABS: Hematocrit 34.6 % (40-54); Hemoglobin 11.2 g/dL (13.0-16.5); Mean Corp Hgb Conc 32.4 g/dL (32-36); Mean Corpuscular Hgb 35.8 pg (27.0-32.0); Mean Corpuscular Volume 110.5 fL (80-94); Platelet Count 103 K/mm3 (150-450); RBC Distribution Width CV 15.1 % (11.6-14.6); RBC Distribution Width SD 61.7 fl (35.1-43.9); Red Blood Count 3.13 M/mm3 (4.6-6.2); White Blood Count 4.5 K/mm3 (4.4-11.0)
[2022-03-02 08:41] LABS: Anion Gap 9 (5-15); BUN 55 mg/dL (7-18); BUN/Creat Ratio 27.4 RATIO (10-20); Calcium,Total 8.7 mg/dL (8.5-10.1); Chloride 104 mmol/L (98-107); Creatinine, Serum 2.01 mg/dL (0.70-1.30); EST Glomerular Filtration Rate 34 mL/min (>60); Est Glom Filt Rate - Afr Amer 42 mL/min (>60); Glucose 121 mg/dL (74-106); Potassium 3.8 mmol/L (3.5-5.1); Sodium Level 140 mmol/L (136-145)
[2022-03-02 08:43] LABS: BNP,B-Type NATRIURETIC PEPTIDE 683.6 pg/mL (0-100)
== END | disposition home or self-care (01) ==
LOC: LAB 07:29
PROVIDERS: PCP Preventive Medicine Occupational Medicine; Referring Provider Nurse Practitioner Family; Visit Provider Nurse Practitioner Family
DX: R06.02 Shortness of breath (principal); I50.9 Heart failure, unspecified; N18.30 Chronic kidney disease, stage 3 unspecified
CPT/HCPCS: 36415; 80048; 83880; 85027

== ENCOUNTER → 2022-03-05 | Outpatient (CLI) | payer MEDICARE, OTHER, SELFPAY | END | disposition home or self-care (01) | LOC: PSN 11:45 | PROVIDERS: PCP Preventive Medicine Occupational Medicine; Referring Provider Nurse Practitioner Family; Visit Provider Nurse Practitioner Family | DX: R00.1 Bradycardia, unspecified (principal); I50.9 Heart failure, unspecified; I42.9 Cardiomyopathy, unspecified; I47.9 Paroxysmal tachycardia, unspecified; I48.0 Paroxysmal atrial fibrillation; I48.92 Unspecified atrial flutter; I51.7 Cardiomegaly | CPT/HCPCS: 93225; 93226 ==

== ENCOUNTER → 2022-03-11 | Outpatient (CLI) | payer MEDICARE, OTHER, SELFPAY ==
--- NOTE | 2022-03-11 12:15 | US_ITS ---
STUDY: RENAL ULTRASOUND - COMPLETE REASON FOR EXAM: Male, 76 years old. CKD3 TECHNIQUE: Ultrasound evaluation of the kidneys was performed with real-time and static gramajo-scale imaging. COMPARISON: None. FINDINGS: RIGHT KIDNEY: Normal location of the right kidney, which is normal in size. The right kidney measures 10.2 cm x 5.2 cm x 4.2 cm. There is a normal cortex of the right kidney. The renal cortex measures 1.6 cm. 2 renal cysts are seen. The larger cyst measures 3.8 cm x 3.8 cm x 3.9 cm. There are no right renal calculi. There is no right hydronephrosis. DISTAL RIGHT URETER: There is non-visualization of the distal right ureter. There is no demonstrated right ureterovesical junction calculus. There is a visualized right ureteral jet. LEFT KIDNEY: Normal location of the left kidney, which is normal in size. The left kidney measures 9.2 cm x 5.3 cm x 5.1 cm. There is a normal cortex of the left kidney. The renal cortex measures 1.2 cm. There is no left renal mass or cyst. There are no left renal calculi. There is no left hydronephrosis. DISTAL LEFT URETER: There is non-visualization of the distal left ureter. There is no demonstrated left ureterovesical junction calculus. There is a visualized left ureteral jet. BLADDER: The distended urinary bladder has a volume of 145 ml. There is a normal wall thickness of the distended urinary bladder. There is no demonstrated mass within the urinary bladder. There are no demonstrated bladder calculi. US/Kidney and Bladder IMPRESSION: Right renal cysts. Electronically Signed: Oneil Hernandez MD at 15:07 EDT ,
== END | disposition home or self-care (01) ==
LOC: US 12:13
PROVIDERS: PCP Preventive Medicine Occupational Medicine; Referring Provider Internal Medicine Nephrology; Visit Provider Internal Medicine Nephrology
DX: N18.4 Chronic kidney disease, stage 4 (severe) (principal); N28.1 Cyst of kidney, acquired
CPT/HCPCS: 76770

== ENCOUNTER → 2022-03-23 | Outpatient (CLI) | payer MEDICARE, OTHER, SELFPAY ==
[2022-03-23 08:23] LABS: Anion Gap 8 (5-15); BUN 62 mg/dL (7-18); BUN/Creat Ratio 31.6 RATIO (10-20); Calcium,Total 9.1 mg/dL (8.5-10.1); Chloride 102 mmol/L (98-107); Creatinine, Serum 1.96 mg/dL (0.70-1.30); EST Glomerular Filtration Rate 35 mL/min (>60); Est Glom Filt Rate - Afr Amer 43 mL/min (>60); Glucose 100 mg/dL (74-106); Potassium 3.3 mmol/L (3.5-5.1); Sodium Level 141 mmol/L (136-145)
== END | disposition home or self-care (01) ==
PROVIDERS: PCP Preventive Medicine Occupational Medicine; Referring Provider Physician Assistant Medical; Visit Provider Physician Assistant Medical
DX: N18.30 Chronic kidney disease, stage 3 unspecified (principal)
CPT/HCPCS: 36415; 80048

== ENCOUNTER → 2022-04-14 | Outpatient (CLI) | payer MEDICARE, OTHER, SELFPAY ==
[2022-04-14 08:48] LABS: Anion Gap 6 (5-15); BUN 51 mg/dL (7-18); BUN/Creat Ratio 25.8 RATIO (10-20); Calcium,Total 8.9 mg/dL (8.5-10.1); Chloride 102 mmol/L (98-107); Creatinine, Serum 1.98 mg/dL (0.70-1.30); EST Glomerular Filtration Rate 35 mL/min (>60); Est Glom Filt Rate - Afr Amer 42 mL/min (>60); Glucose 110 mg/dL (74-106); Potassium 3.4 mmol/L (3.5-5.1); Sodium Level 140 mmol/L (136-145)
== END | disposition home or self-care (01) ==
PROVIDERS: PCP Preventive Medicine Occupational Medicine; Referring Provider Physician Assistant Medical; Visit Provider Physician Assistant Medical
DX: N18.30 Chronic kidney disease, stage 3 unspecified (principal)
CPT/HCPCS: 36415; 80048